=== PATIENT | male | born 1940 | race Caucasian/White ===

== ENCOUNTER 2019-11-17 02:10 | Emergency (ER) | payer OTHER ==
[2019-11-17] MEDS ORDERED: predniSONE 20 MG TAB ONE (03:00)
[2019-11-17] MEDS ORDERED: KETOROLAC 30 MG/ML INJ ONE (03:00)
[2019-11-17] MEDS ORDERED: TRAMADOL HCL 50 MG TAB ONE (03:00)
--- NOTE | 2019-11-17 03:14 | ER ---
Nurse's Notes [facility] Name: Jean-Pierre Betancur Age: 79 yrs Sex: Male : 1940 Arrival Date: 11/17/2019 Time: 02:13 Bed 5 Private MD: Manisha Melendez C Diagnosis: Myalgia Presentation: 11/17 02:33 Presenting complaint: Patient states: he is having a flare up of his polymyalgia bb rheumatica with joint and muscle pain for several months but worsened yesterday and he is unable to sleep tonight. Transition of care: patient was not received from another setting of care. Onset of symptoms was November 16, 2019. Risk Assessment: Do you want to hurt yourself or someone else? Patient reports no desire to harm self or others. Initial Sepsis Screen: Does the patient meet any 2 criteria? No. Patient's initial sepsis screen is negative. Does the patient have a suspected source of infection? No. Patient's initial sepsis screen is negative. Care prior to arrival: None. 02:33 Method Of Arrival: Ambulatory bb 02:33 Acuity: WILSON 4 bb Historical: - Allergies: 02:36 Sulfa (Sulfonamide Antibiotics); bb - Home Meds: 02:36 lisinopril 20 mg Oral tab 1 tab once daily [Active]; bb - PMHx: 02:36 Arthritis; Hypertension; PMR; bb - PSHx: 02:36 prostate; cataract; bb - Immunization history:: Adult Immunizations up to date. - Social history:: Smoking status: Patient/guardian denies using tobacco. - Ebola Screening: : No symptoms or risks identified at this time. Screenin:00 Abuse screen: Denies threats or abuse. Denies injuries from another. Nutritional rr5 screening: No deficits noted. Tuberculosis screening:. Fall Risk None identified. Total M[place]ia Fall Scale indicates No Risk (0-24 pts). Assessment: 02:45 General: Appears in no apparent distress. comfortable, Behavior is calm, cooperative, rr5 appropriate for age. 02:45 Pain: Complains of pain in back Pain radiates to right leg and left leg Pain currently rr5 is 10 out of 10 on a pain scale. Quality of pain is described as aching, Pain began gradually, Is intermittent. Neuro: Level of Consciousness is awake, alert, obeys commands, Oriented to person, place, time, situation, Appropriate for age. Cardiovascular: Capillary refill < 3 seconds Patient's skin is warm and dry. Respiratory: Airway is patent Respiratory effort is even, unlabored, Respiratory pattern is regular, symmetrical. GI: No signs and/or symptoms were reported involving the gastrointestinal system. : No signs and/or symptoms were reported regarding the genitourinary system. EENT: No signs and/or symptoms were reported regarding the EENT system. Derm: Skin is intact, is fragile, is thin, Skin temperature is warm. Musculoskeletal: Capillary refill < 3 seconds, Reports pain in back, right leg and left leg and joints. 03:45 Reassessment: Patient appears in no apparent distress at this time. Patient is alert, rr5 oriented x 3, equal unlabored respirations, skin warm/dry/pink. discharge instruction given and explained without complaints made. able to walk without any complaint. Patient states feeling better. Patient states symptoms have improved. Vital Signs: 02:36 BP 166 / 79; Pulse 97; Resp 16 S; Temp 99.3(O); Pulse Ox 97% on R/A; Weight 74.84 kg bb (R); Height 5 ft. 9 in. (175.26 cm) (R); Pain 10/10; 03:10 BP 143 / 83; Pulse 86; Resp 19; Pulse Ox 99% ; rr5 03:43 BP 144 / 77; Pulse 80; Resp 17; Temp 98.6; Pulse Ox 99% ; Pain 8/10; rr5 02:36 Body Mass Index 24.37 (74.84 kg, 175.26 cm) ED Course: 02:13 Patient arrived in ED. es 02:14 Manisha Melendez MD is Private Physician. es 02:26 Kit Siu MD is Attending Physician. tw4 02:33 Patient has correct armband on for positive identification. Placed in gown. Bed in low rr5 position. Call light in reach. 02:35 Triage completed. bb 02:36 Arm band placed on Patient placed in an exam room, on a stretcher, on pulse oximetry. bb Family accompanied patient. 02:53 Zach Singh RN is Primary Nurse. rr5 03:12 Manisha Melendez MD is Referral Physician. tw4 03:46 No provider procedures requiring assistance completed. Patient did not have IV access rr5 during this emergency room visit. Administered Medications: 03:00 Drug: predniSONE 60 mg Route: PO; rr5 03:47 Follow up: Response: No adverse reaction rr5 03:00 Drug: traMADol 25 mg {Note: rass 0.} Route: PO; rr5 03:46 Follow up: Response: No adverse reaction; Pain is decreased; RASS: Alert and Calm (0) rr5 03:05 Drug: TORadol - Ketorolac 15 mg Route: IM; Site: right deltoid; rr5 03:47 Follow up: Response: No adverse reaction; Pain is decreased rr5 Outcome: 03:13 Discharge ordered by . tw4 03:46 Discharged to home ambulatory, with family. rr5 03:46 Condition: stable 03:46 Discharge instructions given to patient, Instructed on discharge instructions, follow up and referral plans. medication usage, Demonstrated understanding of instructions, follow-up care, medications, Prescriptions given X 2. 03:47 Patient left the ED. rr5 Signatures: Enid Thacker Brenda RN RN Kit Ochoa MD MD tw4 Zach Singh RN RN rr5
--- NOTE | 2019-11-17 03:14 | EDPHYS ---
Physician Documentation [facility] Name: Jean-Pierre Betancur Age: 79 yrs Sex: Male : 1940 Arrival Date: 11/17/2019 Time: 02:13 Bed 5 Private MD: Manisha Melendez C ED Physician Kit Siu HPI: 11/17 02:52 This 79 yrs old Male presents to ER via Ambulatory with complaints of PRM tw4 auto immune disorder. 02:52 GENERALIZED JOINT PAIN. Onset: The symptoms/episode began/occurred today. Severity of tw4 symptoms: At their worst the symptoms were mild in the emergency department the symptoms are unchanged. The patient has not experienced similar symptoms in the past. Historical: - Allergies: 02:36 Sulfa (Sulfonamide Antibiotics); bb - Home Meds: 02:36 lisinopril 20 mg Oral tab 1 tab once daily [Active]; bb - PMHx: 02:36 Arthritis; Hypertension; PMR; bb - PSHx: 02:36 prostate; cataract; bb - Immunization history:: Adult Immunizations up to date. - Social history:: Smoking status: Patient/guardian denies using tobacco. - Ebola Screening: : No symptoms or risks identified at this time. ROS: 02:52 Cardiovascular: Negative for chest pain, palpitations, and edema, Respiratory: Negative tw4 for shortness of breath, cough, wheezing, and pleuritic chest pain, Abdomen/GI: Negative for abdominal pain, nausea, vomiting, diarrhea, and constipation, Back: Negative for injury and pain, MS/Extremity: Negative for injury and deformity, Skin: Negative for injury, rash, and discoloration, Neuro: Negative for headache, weakness, numbness, tingling, and seizure. 02:52 Constitutional: Positive for body aches, chills, Negative for fatigue, fever, malaise, poor PO intake, weight loss. Exam: 02:52 Constitutional: This is a well developed, well nourished patient who is awake, alert, tw4 and in no acute distress. Head/Face: Normocephalic, atraumatic. Chest/axilla: Normal chest wall appearance and motion. Nontender with no deformity. No lesions are appreciated. Cardiovascular: Regular rate and rhythm with a normal S1 and S2. No gallops, murmurs, or rubs. Normal PMI, no JVD. No pulse deficits. Respiratory: Lungs have equal breath sounds bilaterally, clear to auscultation and percussion. No rales, rhonchi or wheezes noted. No increased work of breathing, no retractions or nasal flaring. Abdomen/GI: Soft, non-tender, with normal bowel sounds. No distension or tympany. No guarding or rebound. No evidence of tenderness throughout. Back: No spinal tenderness. No costovertebral tenderness. Full range of motion. MS/ Extremity: Pulses equal, no cyanosis. Neurovascular intact. Full, normal range of motion. Neuro: Awake and alert, GCS 15, oriented to person, place, time, and situation. Cranial nerves II-XII grossly intact. Motor strength 5/5 in all extremities. Sensory grossly intact. Cerebellar exam normal. Normal gait. Vital Signs: 02:36 BP 166 / 79; Pulse 97; Resp 16 S; Temp 99.3(O); Pulse Ox 97% on R/A; Weight 74.84 kg bb (R); Height 5 ft. 9 in. (175.26 cm) (R); Pain 10/10; 03:10 BP 143 / 83; Pulse 86; Resp 19; Pulse Ox 99% ; rr5 03:43 BP 144 / 77; Pulse 80; Resp 17; Temp 98.6; Pulse Ox 99% ; Pain 8/10; rr5 02:36 Body Mass Index 24.37 (74.84 kg, 175.26 cm) MDM: 02:26 Patient medically screened. tw4 05:22 Differential Diagnosis altered mental status, sepsis. Data reviewed: vital signs, tw4 nurses notes. Counseling: I had a detailed discussion with the patient and/or guardian regarding: the historical points, exam findings, and any diagnostic results supporting the discharge/admit diagnosis. Special discussion: I discussed with the patient/guardian in detail that at this point there is no indication for admission to the hospital. It is understood, however, that if the symptoms persist or worsen the patient needs to return immediately for re-evaluation. Administered Medications: 03:00 Drug: predniSONE 60 mg Route: PO; rr5 03:47 Follow up: Response: No adverse reaction rr5 03:00 Drug: traMADol 25 mg {Note: rass 0.} Route: PO; rr5 03:46 Follow up: Response: No adverse reaction; Pain is decreased; RASS: Alert and Calm (0) rr5 03:05 Drug: TORadol - Ketorolac 15 mg Route: IM; Site: right deltoid; rr5 03:47 Follow up: Response: No adverse reaction; Pain is decreased rr5 Disposition: 11/17/19 03:13 Discharged to Home. Impression: Myalgia. - Condition is Stable. - Discharge Instructions: Musculoskeletal Pain, Muscle Pain, Adult. - Prescriptions for Tramadol 50 mg Oral Tablet - take 1 tablet by ORAL route every 8 hours as needed; 12 tablet. Medrol (Kojo) 4 mg Oral Tablets, Dose Pack - take 1 tablet by ORAL route as directed - follow package instructions; 1 packet. - Medication Reconciliation Form, Thank You Letter, Antibiotic Education, Prescription Opioid Use form. - Follow up: Manisha Melendez MD; When: Upon discharge from the Emergency Department; Reason: Recheck today's complaints, Continuance of care. - Problem is new. - Symptoms have improved. Signatures: Meg Clark RN RN Kit Ochoa MD MD tw4 Zach Singh RN RN rr5 Corrections: (The following items were deleted from the chart) 03:47 03:13 11/17/2019 03:13 Discharged to Home. Impression: Myalgia. Condition is Stable. rr5 Forms are Medication Reconciliation Form, Thank You Letter, Antibiotic Education, Prescription Opioid Use. Follow up: Manisha Melendez; When: Upon discharge from the Emergency Department; Reason: Recheck today's complaints, Continuance of care. Problem is new. Symptoms have improved. tw4
[2019-11-17 03:53] VITALS: O2SAT 99
[2019-11-17 03:54] VITALS: BP 144/77; TEMP 98.6
== END 2019-11-17 03:47 | disposition home or self-care (01) ==
LOC: ER 02:10
DX: M79.10 Myalgia, unspecified site (principal); M35.3 Polymyalgia rheumatica; I10 Essential (primary) hypertension; Z88.2 Allergy status to sulfonamides
CPT/HCPCS: 96372; 99283; J7512

== ENCOUNTER 2022-10-05 10:46 | Observation (INO) | payer OTHER ==
--- OUTSIDE RECORDS SUMMARY | 2022-10-05 10:51 | XMS REPORT | Continuity of Care Document ---
:1940 Author Organization [facility] t Address [address] [place] [address] Care Team Providers Name Role Phone Chandan Wilson MD Primary Care Physician ROSAMARIA LEGER Attending Clinician Unavailable Jenny Urrutia MD Attending Clinician Lin Attending Clinician Unavailable Junior Reeder Attending Clinician [phone] Glynn Rodriguez MD Attending Clinician Chandan Wilson MD Attending Clinician JENNY URRUTIA Attending Clinician Unavailable Lin Admitting Clinician Unavailable Payers Payer Name Policy Type Policy Number Effective Date Expiration Date S lee MEDICARE PART A [id number] 2003 AND B 00:00:00 [place]: [id number] 2003 [employer] 00:00:00 [place] [id number] 2018 COMPANIES - PLAN F 00:00:00 (MEDICARE SUPPLEMENT) MEDICARE PART A [id number] 2003 \T\ B 00:00:00 [place] [id number] 2016 INDEMNITY 00:00:00 Problems Condition Condition Condition Status Onset Resolution Last Treating Co mments Source Name Details Category Date Date Treatment Clinician Date Triggering Triggering Problem Active A zalea of digit of Digit 07-23 Orthop e 00:00: dic 00 Sports Medicin e Arthritis Arthritis Problem Active Aza nathan of of 07-23 Orthope bilateral Bilateral 00:00: dic first First 00 Sports carpometac Carpometac Me dicin arpal arpal e joints Joints Pain of Pain of Problem Active Laina left hand Left Hand 07-23 Orth ope 00:00: dic 00 Sports Medicin e Pain in Pain in Problem Active Laina right hand Right Hand 07-23 Or thope 00:00: dic 00 Sports Medicin e CMC CMC Disease Active Last [facility] arthritis arthritis 07-16 Assessmen H ealth 00:00: t & Plan: 00 Formattin g of this note might be different from the original. Reassured patient today and I recommend ed a trial of wrist brace. Also discussed possible CMC joint osteoarth ritic CSI injection to be done if there is worsening pain. But he can also try applying some Pennsaid which have given him samples to today as well I can follow-up with him as needed. Wrist Wrist Disease Active [facility] pain, left pain, left 07-16 He alth 00:00: 00 assisted assisted Disease Active UT (current) (current) 5- use of use of 00:00: systemic systemic 00 steroids steroids Trigger Trigger Problem Active 2019-11 [facility]aina finger of Finger of 1-05 Orth ope left hand Left Hand 00:00: dic 00 Sports Medicin e Degenerati Degenerati Problem Active A zalea on of on of -29 Orthope lumbar Lumbar 00:00: dic interverte Interverte 00 Sp orts bral disc bral Disc Medi sheyla e Low back Low Back Problem Active Azale a pain Pain 4-29 Orthope 00:00: dic 00 Sports Medicin e Encounter Encounter Disease Active [facility] for for 3-16 Health long-term long-term 00:00: (current) (current) 00 use of use of steroids steroids Inflammati Inflammati Problem Active A zalea on of on of 8- Orthope rotator Rotator 00:00: dic cuff Cuff 00 Sports tendon Tendon Medicin e 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 07-13 Or thope of of 00:00: dic shoulder Shoulder 00 Sports region Region Medicin e 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 8- Orthope 00:00: dic 00 Sports Medicin e Pain of Pain of Problem Active Laina left Left 8- Orthope shoulder Shoulder 00:00: dic joint Joint 00 Sports Medicin e 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 4 Or thope thy thy 00:00: dic 00 Sports Medicin e Trochanter Trochanter Problem Active A buddychristinamargot ic ic 4- Orthope bursitis Bursitis 00:00: dic of left of Left 00 Sports hip Hip Medicin e 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 Osteoarthr 2-17 Or thope itis itis 00:00: dic 00 Sports Medicin e Trigger Trigger Problem Active 2017-11 Laina finger of Finger of 1-01 Orth ope right hand Right Hand 00:00: di c 00 Sports Medicin e Degenerati Degenerati Problem Active A zalea ve joint ve Joint 5-11 Orthop e disease of Disease of 00:00: di c hand Hand 00 Sports Medicin e Enthesopat Enthesopat Problem Active A buddychristinamargot hy of hip hy of Hip 3-23 Orth ope region Region 00:00: dic 00 Sports Medicin e 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 2-11 Or thope s s 00:00: dic 00 Sports Medicin e Allergies, Adverse Reactions, Alerts Allergy Allergy Status Severity Reaction(s) Onset Inactive Treating Comm ents Source Name Type Date Date Clinician Sulfa Propensi Active Unknown [facility] Antibiot ty to 4-24 Health ics adverse 00:00: reaction 00 s Erythrom Allergy Active Laina ycin to 2-11 Orthope substanc 00:00: dic e 00 Sports Medicin e SULFA Allergy Active Laina (SULFONA to 2-11 Orthope MIDE substanc 00:00: dic ANTIBIOT e 00 Sports ICS) Medicin e SULFA Drug Active Rash [facility] (SULFONA Class 7-01 ity of MIDE 00:00: [place] ANTIBIOT 00 Medical ICS) Branch Social History Social Habit Start Date Stop Date Quantity Comments Source Exposure to 2022-07-31 2022-08-10 Not sure [facility] SARS-CoV-2 (event) 00:00:00 10:22:00 Tobacco use and 2022-07-06 2022-07-06 Smokeless tobacco [facility] exposure 00:00:00 00:00:00 non-user Tobacco Comment 2022-07-06 2022-07-06 Smoking History [facility] ealt 00:00:00 00:00:00 Packs/day: N. Recorded:02/04/2021 Alcohol intake 2021-03-25 2021-03-25 Ex-drinker [facility] 00:00:00 00:00:00 (finding) Sex [birth year] [facility] 00:00:00 00:00:00 Smoking Status Start Date Stop Date Source Heavy Tobacco Smoker [facility] Never smoked tobacco [facility] Medications Ordered Filled Start Stop Current Ordering Indication Dosage Frequency Signature Comments Components Source Medication Medication Date Date Medication? Clinician (SIG) Name Name methocarbam Yes 500mg Q.5D Take 500 U T ol 9-20 mg by Health (Robaxin) 11:02: mouth 2 500 MG 16 (two) tablet times a day. metoprolol Yes metoprolol U T succinate 9-20 succinate Healt h XL 11:02: ER 25 mg (Toprol-XL) 16 tablet,ext 25 MG 24 hr ended tablet release 24 hr lisinopril Yes lisinopril U T 20 MG 9-20 20 mg Health tablet 11:02: tablet 16 ezetimibe Yes ezetimibe UT (Zetia) 10 9-20 10 mg Health MG tablet 11:02: tablet 16 methocarbam Yes 500mg Q.5D Take 500 U T ol 8-16 mg by Health (Robaxin) 09:52: mouth 2 500 MG 09 (two) tablet times a day. metoprolol Yes metoprolol U T succinate 8-16 succinate Healt h XL 09:52: ER 25 mg (Toprol-XL) 09 tablet,ext 25 MG 24 hr ended tablet release 24 hr lisinopril 0 Yes lisinopril U T 20 MG 8-16 20 mg Health tablet 09:52: tablet 09 ezetimibe 2021-0 Yes ezetimibe UT (Zetia) 10 8-16 10 mg Health MG tablet 09:52: tablet 09 gabapentin Yes [id number] 100mg QD Take 1 UT (Neurontin) 8-16 capsule Healt h 100 MG 00:00: (100 mg capsule 00 total) by mouth 1 (one) time each day. gabapentin 2021- No [id number] 100mg QD Take 1 UT (Neurontin) 07-06 capsule Heal th 100 MG 00:00: 04:59 (100 mg capsule 00 :00 total) by mouth 1 (one) time each day. celecoxib 2021- No [id number] 100mg Q.5D Take 1 UT (CeleBREX) 07-06 [id number] capsule Hea lth 100 MG 00:00: 04:59 (100 mg capsule 00 :00 total) by mouth in the morning and 1 capsule (100 mg total) in the evening. lisinopril Yes lisinopril U T 20 MG 8-26 20 mg Health tablet 21:18: tablet 47 ezetimibe 2020-0 Yes ezetimibe UT (Zetia) 10 8-26 10 mg Health MG tablet 21:18: tablet 47 metoprolol 0 Yes metoprolol U T succinate 8-26 succinate Healt h XL 21:18: ER 25 mg (Toprol-XL) 46 tablet,ext 25 MG 24 hr ended tablet release 24 hr Diclofenac 2020- No [id number] 20mg Q.5D Apply 20 UT Sodium 8-26 09-26 mg Health (Pennsaid) 00:00: 04:59 topically 2 % 00 :00 2 (two) solution times a day. Diclofenac 2020-0 2020- No [id number] 20mg Q.5D Apply 20 UT Sodium 8-26 09-26 mg Health (Pennsaid) 00:00: 04:59 topically 2 % 00 :00 2 (two) solution times a day. methocarbam 0 Yes 500mg Q.5D Take 500 U T ol 4-24 mg by Health (Robaxin) 16:52: mouth 2 500 MG 38 (two) tablet times a day. methocarbam 0 Yes 500mg Q.5D Take 500 U T ol 4-24 mg by Health (Robaxin) 11:52: mouth 2 500 MG 38 (two) tablet times a day. methocarbam 0 Yes 500mg Q.5D Take 500 U T ol 4-24 mg by Health (Robaxin) 11:52: mouth 2 500 MG 38 (two) tablet times a day. predniSONE 2019-0 Yes prednisone U T (Deltasone) 3-16 2.5 mg Health 2.5 MG 00:00: tablet tablet 00 predniSONE 0 Yes prednisone U T (Deltasone) 3-16 2.5 mg Health 2.5 MG 00:00: tablet tablet 00 predniSONE 2019-0 Yes prednisone U T (Deltasone) 3-16 2.5 mg Health 2.5 MG 00:00: tablet tablet 00 ezetimibe ezetimibe No ezetimibe L[facility]a 10 mg 10 mg 10 mg Orthope tablet tablet tablet dic Sports Medicin e lisinopril lisinopril No lisinopril Laina 20 mg 20 mg 20 mg Orthope tablet tablet tablet dic Sports Medicin e metoprolol metoprolol No metoprolol Laina succinate succinate succinate Orthope ER 25 mg ER 25 mg ER 25 mg dic tablet,exte tablet,exte tablet,ext Sports nded nded ended Medicin release 24 release 24 release 24 e hr hr hr prednisone prednisone No prednisone Laina 10 mg 10 mg 10 mg Orthope tablet 1 by tablet 1 by tablet 1 dic mouth three mouth three by mouth Sports times a day times a day three Medicin times a e day Voltaren Voltaren No Voltaren Aza nathan Arthritis Arthritis Arthritis Orthope Pain 1 % Pain 1 % Pain 1 % dic topical gel topical gel topical Sports Apply 2 Apply 2 gel Apply Medi sheyla gram to gram to 2 gram to e affected affected affected area three area three area three times a day times a day times a as needed as needed day as for pain for pain needed for pain Immunizations Ordered Immunization Filled Immunization Date Status Commen ts Source Name Name COVID-19 Pfizer & 2022-05-06 Completed [facility] Vaccination (NEVES 00:00:00 CAP-DO NOT DILUTE) COVID-19 Pfizer & 2022-05-06 Completed [facility] Vaccination (NEVES 00:00:00 CAP-DO NOT DILUTE) Vital Signs Vital Name Observation Time Observation Value Comments Source Systolic blood 2022-08-10 16:01:00 99 mm[Hg] [facility] pressure Diastolic blood 2022-08-10 16:01:00 63 mm[Hg] [facility] pressure Heart rate 2022-08-10 16:01:00 70 /min [facility] Body height 2022-08-10 16:01:00 172.7 cm [facility] Body weight 2022-08-10 16:01:00 70.308 kg [facility] BMI 2022-08-10 16:01:00 23.57 kg/m2 [facility] Height 2022-07-23 00:00:00 69 [in_i] [facility] BMI (Body Mass 2022-07-23 00:00:00 22.9 kg/m2 [facility] Orthopedic Index) Sports Medicine Body Weight 2022-07-23 00:00:00 155 [lb_av] [facility] Systolic blood 2022-07-06 14:49:00 121 mm[Hg] [facility] pressure Diastolic blood 2022-07-06 14:49:00 63 mm[Hg] [facility] pressure Heart rate 2022-07-06 14:49:00 85 /min [facility] Body height 2022-07-06 14:49:00 175.3 cm [facility] Body weight 2022-07-06 14:49:00 68.04 kg [facility] BMI 2022-07-06 14:49:00 22.15 kg/m2 [facility] Procedures Procedure Date / Time Performing Clinician Source Performed XR, hand, 2 view 2022-07-23 00:00:00 [facility] [place] BONE DENSITY DXA DUAL 2021-04-21 14:31:05 Chandan [facility] EN[facility]GY [id number] [place] BONE DENSITY DXA DUAL 2021-04-21 14:31:05 Chandan [facility] EN[facility] [id number] Prostatectomy [facility] her[facility] Encounters Start End Encounter Admission Attending Care Care Encounter Source Date/Time Date/Time Type Type Clinicians Facility Department ID 2021-07-15 Outpatient [facility] [id number] [place] 15:20:07 Health 2021-03-28 Outpatient [place], [facility] [id number] [place] 04:03:14 [facility] 2022-08-10 2022-08-10 Office ANI Urrutia [facility] [id number] [place] 11:00:00 11:21:21 Visit [facility] [id number] Neo sandrine ISABELLE 2 [id number] 2022-07-23 2022-07-23 Outpatient FOG_Burke_R AOSM AOSM [id number] Laina 00:00:00 00:00:00 Marques [id number] Ortho pe dic Sports Medicin e 2022-07-23 2022-07-23 Outpatient MIRIAM Reeder [id number] 00:00:00 00:00:00 Junior Lamar [id number] 2022-07-23 2022-07-23 Junior PINEDA [place] - Ortho Laina 00:00:00 00:00:00 MD Varinder: Iqra Adams [address] [address] FOG_Ofc dic [place], [place] [facility] [address] [facility]in [place] [facility] [address] , Ph. [id number] 2022-07-19 2022-07-19 Outpatient FOG_Burke_R AOSM AOSM [id number] Laina 00:00:00 00:00:00 Marques [id number] Ortho pe dic Sports Medicin e 2022-07-14 2022-07-14 Outpatient FOG_Burke_R AOSM AOSM [id number] L[facility]a 00:00:00 00:00:00 Marques [id number] Ortho pe dic Sports Medicin e 2022-07-13 2022-07-13 Outpatient FOG_Burke_R AOSM AOSM [id number] [facility]a 00:00:00 00:00:00 Marques [id number] Ortho pe dic Sports Medicin e 2022-07-08 2022-07-08 Outpatient FOG_Burke_R AOSM AOSM [id number] [facility]a 00:00:00 00:00:00 Marques [id number] Ortho pe dic Sports Medicin e 2022-07-06 2022-07-06 Office ANI Urrutia [facility] [id number] [place] 11:00:00 11:00:00 Visit Jenny [facility] [id number] He alth [place] [address] [id number] 2021-07-16 2021-07-16 Office Shirlene [facility] [id number] [place] 15:55:40 16:10:40 Visit MARY Gallardo [id number] H ealth [facility] [id number] [address] [id number] 2021-03-25 2021-03-25 EXT [facility] OP Wilson, EXT MSRDP [id number] [place] 00:00:00 00:00:00 Chandan LOCATION [id number] H ealth [id number] 2021-03-25 2021-03-25 EXT [facility] OP Wilson, EXT M[facility]DP [id number] [place] 00:00:00 00:00:00 Chandan LOCATION [id number] H ealth [id number] 2021-02-06 2021-02-06 Outpatient [facility] [id number] [facility] 12:30:00 12:30:00 [facility] 2021-01-16 2021-01-16 Outpatient [facility] [id number] Univers 11:20:00 11:20:00 [facility] 2020-12-24 2020-12-24 Outpatient NAKIA, JORGEBL [facility] [id number] [facility] 10:00:00 14:13:00 JENNY Results This patient has no known results.
[2022-10-05] MEDS ORDERED: dexAMETHasone 10 MG/ML VIAL ONE (11:36)
[2022-10-05] MEDS ORDERED: FAMOTIDINE 20 MG/2 ML VIAL IV ONE (11:37)
[2022-10-05] MEDS ORDERED: GLUCAGON 1 MG/VIAL ONE (11:37)
[2022-10-05 12:03] LABS: Absolute Lymphocytes (CBC) 1.2 K/uL (0.7-4.9); Hematocrit 42.6 % (39.6-49.0); Lymphocytes % 11.2 % (15.3-44.8); MCV 95.7 fL (80-100); MPV 7.7 fL (7.6-11.3); RBC Red Blood Cell Count 4.45 M/uL (4.33-5.43)
[2022-10-05 12:16] LABS: Potassium 3.9 mmol/L (3.5-5.1)
--- NOTE | 2022-10-05 13:34 | EDPHYS ---
Physician Documentation [facility] Name: Jean-Pierre Betancur Age: 82 yrs Sex: Male : 1940 Arrival Date: 10/05/2022 Time: 10:50 Bed Treatment Private MD: ED Physician Jamar Grimaldo HPI: 10/05 11:34 This 82 yrs old Male presents to ER via Ambulatory with complaints of Difficulty rn Swallowing. 11:34 The patient presents with a foreign body sensation in the throat. The patient describes rn throat pain as raw. Onset: The symptoms/episode began/occurred this morning. Severity of symptoms: At their worst the symptoms were moderate, in the emergency department the symptoms are unchanged. Modifying factors: The symptoms are alleviated by nothing, the symptoms are aggravated by fluids, swallowing. Associated signs and symptoms: Pertinent positives: dysphagia, Pertinent negatives chest pain, fever, shortness of breath. The patient has experienced similar episodes in the past. The patient has not recently seen a physician. Pt reports has been doing fine last few days, + intermittent problems with swallowing and things getting stuck but usually pass. This AM took his normal pills and feels like got stuck in lower esophagus. Unable to drink liquids. Had not eaten today yet. . Historical: - Allergies: 17:08 Sulfa (Sulfonamide Antibiotics); ld1 - Home Meds: 17:08 lisinopril 20 mg Oral tab 1 tab once daily [Active]; ld1 - PMHx: 17:08 Arthritis; Hypertension; PMR; ld1 - Immunization history:: Adult Immunizations up to date, Client reports receiving the 2nd dose of the Covid vaccine. - Family history:: not pertinent. - Social history:: Smoking status: Patient denies any tobacco usage or history of. - Hospitalizations: : No recent hospitalization is reported. ROS: 11:34 Constitutional: Negative for fever, chills, and weight loss, Eyes: Negative for injury, rn pain, redness, and discharge, ENT: Negative for injury, pain, and discharge, Neck: Negative for injury, pain, and swelling, Cardiovascular: Negative for chest pain, palpitations, and edema, Respiratory: Negative for shortness of breath, cough, wheezing, and pleuritic chest pain, Abdomen/GI: Negative for abdominal pain, diarrhea, and constipation, + foreign body in esophagus Back: Negative for injury and pain, MS/Extremity: Negative for injury and deformity, Skin: Negative for injury, rash, and discoloration, Neuro: Negative for headache, weakness, numbness, tingling, and seizure. Exam: 11:34 Constitutional: This is a well developed, well nourished patient who is awake, alert, rn holding emesis bag and spitting into it Head/Face: Normocephalic, atraumatic. ENT: no stridor Cardiovascular: Regular rate and rhythm. No pulse deficits. Respiratory: No increased work of breathing, no retractions or nasal flaring. Abdomen/GI: Soft, non-tender Skin: Warm, dry MS/ Extremity: Pulses equal, no cyanosis. Neuro: Awake and alert, GCS 15 Vital Signs: 11:33 BP 138 / 78; Pulse 93; Resp 16; Pulse Ox 98% on R/A; iw 13:40 BP 131 / 77; Pulse 89; Resp 16; Pulse Ox 99% on R/A; ld1 MDM: 10:51 Patient medically screened. rn 13:32 Differential diagnosis: esophagitis, pill esophagitis. Data reviewed: vital signs, rn nurses notes, and as a result, I will discharge patient. Counseling: I had a detailed discussion with the patient and/or guardian regarding: the historical points, exam findings, and any diagnostic results supporting the discharge/admit diagnosis, lab results, the need for further work-up and treatment in the hospital. Response to treatment: There is no appreciated change of the patient's symptoms at this time, and as a result, I will admit patient. Admission orders: after a detailed discussion of the patient's condition and case, the admit orders are written by me. ED course: Pt given steroids and antacids, given PO challenge and unable to keep fluids down, will admit to Dr. Melendez for esophagitis and not tolerating PO. Has seen Dr. Cantu before for esophagitis. . 15:13 ED course: Consulted with Dr. Cantu, will see patient in hospital tomorrow, will admit rn to Dr. Melendez. 10/05 11:31 Order name: CBC with Diff; Complete Time: 12:21 rn 10/05 11:31 Order name: Basic Metabolic Panel; Complete Time: 12:21 rn 10/05 14:32 Order name: SARS-COV-2 Antigen Rapid; Complete Time: 15:01 EDNC 10/05 11:31 Order name: IV Start; Complete Time: 11:56 rn Administered Medications: 11:56 Drug: GlucaGen (glucagon) 1 mg Route: IVP; Site: left antecubital; ap3 11:56 Drug: Pepcid (famotidine) 20 mg Route: IVP; Site: left antecubital; ap3 11:56 Drug: Decadron - Dexamethasone 10 mg Route: IVP; Site: left antecubital; ap3 15:42 Drug: morphine 2 mg Route: IVP; Infused Over: 4 mins; Site: left antecubital; ld1 Disposition Summary: 10/05/22 13:34 Hospitalization Ordered Hospitalization Status: Observation rn Provider: Manisha Melendez rn Location: Telemetry/MedSurg (observation) rn Condition: Stable rn Problem: an acute exacerbation rn Symptoms: are unchanged rn Bed/Room Type: Standard rn Room Assignment: 411(10/05/22 16:26) bd Diagnosis - Esophagitis, unspecified - Pill related rn Forms: - Medication Reconciliation Form rn - SBAR form rn Signatures: Dispatcher [employer] EDMS Wendy Jesus Roman, MD MD rn Prokisch, Amanda, RN RN ap3 Sandra Berger RN RN ld1 Corrections: (The following items were deleted from the chart) 16:26 13:34 rn bd
--- NOTE | 2022-10-05 13:34 | ER ---
Nurse's Notes [facility] Name: Jean-Pierre Betancur Age: 82 yrs Sex: Male : 1940 Arrival Date: 10/05/2022 Time: 10:50 Bed Treatment Private MD: Diagnosis: Esophagitis, unspecified-Pill related Presentation: 10/05 11:24 Chief complaint: Patient states: difficulty swallowing after taking his meds this iw morning ,feels like it got stuck in his esophagus. Coronavirus screen: At this time, the client does not indicate any symptoms associated with coronavirus-19. Ebola Screen: Patient negative for fever greater than or equal to 101.5 degrees Fahrenheit, and additional compatible Ebola Virus Disease symptoms Patient denies exposure to infectious person. Patient denies travel to an Ebola-affected area in the 21 days before illness onset. No symptoms or risks identified at this time. Initial Sepsis Screen: Does the patient meet any 2 criteria? No. Patient's initial sepsis screen is negative. Does the patient have a suspected source of infection? No. Patient's initial sepsis screen is negative. Risk Assessment: Do you want to hurt yourself or someone else? Patient reports no desire to harm self or others. Onset of symptoms was October 05, 2022. 11:24 Method Of Arrival: Ambulatory iw 11:24 Acuity: WILSON 3 iw Historical: - Allergies: 17:08 Sulfa (Sulfonamide Antibiotics); ld1 - Home Meds: 17:08 lisinopril 20 mg Oral tab 1 tab once daily [Active]; ld1 - PMHx: 17:08 Arthritis; Hypertension; PMR; ld1 - Immunization history:: Adult Immunizations up to date, Client reports receiving the 2nd dose of the Covid vaccine. - Family history:: not pertinent. - Social history:: Smoking status: Patient denies any tobacco usage or history of. - Hospitalizations: : No recent hospitalization is reported. Screenin:56 Abuse screen: Denies threats or abuse. Nutritional screening: No deficits noted. ap3 Tuberculosis screening: No symptoms or risk factors identified. 17:08 Fall Risk None identified. ld1 Assessment: 11:57 General: Appears uncomfortable, Behavior is calm, cooperative. Pain: Complains of pain ap3 in mid-sternal area. Neuro: Level of Consciousness is awake, alert, obeys commands, Oriented to person, place, time, situation, Gait is steady, Speech is normal. Cardiovascular: Patient's skin is warm and dry. Respiratory: Airway is patent Respiratory effort is even, unlabored, Respiratory pattern is regular, symmetrical. EENT: Parent/caregiver reports the patient having difficulty swallowing. Vital Signs: 11:33 BP 138 / 78; Pulse 93; Resp 16; Pulse Ox 98% on R/A; iw 13:40 BP 131 / 77; Pulse 89; Resp 16; Pulse Ox 99% on R/A; ld1 ED Course: 10:50 Patient arrived in ED. rg4 10:51 Jamar Grimaldo MD is Attending Physician. rn 11:26 Triage completed. iw 11:26 Arm band placed on. iw 11:31 Niyah Max RN is Primary Nurse. ap3 11:56 Inserted saline lock: 20 gauge in left antecubital area, using aseptic technique. Blood ap3 collected. 11:58 Patient has correct armband on for positive identification. Call light in reach. Adult ap3 w/ patient. Pulse ox on. NIBP on. Door closed. Noise minimized. 13:34 Manisha Melendez MD is Hospitalizing Provider. rn 17:07 No provider procedures requiring assistance completed. Patient admitted, IV remains in ld1 place. Administered Medications: 11:56 Drug: GlucaGen (glucagon) 1 mg Route: IVP; Site: left antecubital; ap3 11:56 Drug: Pepcid (famotidine) 20 mg Route: IVP; Site: left antecubital; ap3 11:56 Drug: Decadron - Dexamethasone 10 mg Route: IVP; Site: left antecubital; ap3 15:42 Drug: morphine 2 mg Route: IVP; Infused Over: 4 mins; Site: left antecubital; ld1 Medication: 11:58 VIS not applicable for this client. ap3 Outcome: 13:34 Decision to Hospitalize by Provider. rn 17:07 Admitted to Med/surg accompanied by tech, via wheelchair, room 411, with chart, Report ld1 called to NOELLE Caldwell 17:07 Condition: stable 17:07 Instructed on the need for admit. 17:08 Patient left the ED. ld1 Signatures: Petrona Rollins RN RN Jamar Grimaldo MD MD rn Garcia, Rubi rg4 Niyah Max, RN RN ap3 Sandra Berger, RN RN ld1
[2022-10-05 14:32] LABS: SARS-CoV-2 Antigen Rapid Res Negative (Negative)
[2022-10-05] MEDS ORDERED: ONDANSETRON 4 MG/2 ML VIAL IV PRN (15:27)
[2022-10-05] MEDS ORDERED: SODIUM CHLORIDE 0.9% 10ML INJ IV PRN (15:27)
[2022-10-05] MEDS ORDERED: MORPHINE 2 MG/ML SYR ONE (15:38)
[2022-10-05 18:00] VITALS: BMI 26.4
[2022-10-05] MEDS: D5.45NS W/KCL 20MEQ 1,000 ML IV SCH (18:28)
[2022-10-05] MEDS ORDERED: METOPROLOL TARTRATE 5 MG/5 ML INJ IV PRN (19:10)
[2022-10-05] MEDS ORDERED: INFLUENZA VACCINE (for 6+ mo) 0.5 ML DOSE IMVAC ONE (20:00)
--- NOTE | 2022-10-06 01:54 | HP ---
Date of Admission: 10/05/2022 Chief Complaint: Trouble swallowing and pain. History Of Present Illness: This is an 82-year-old pleasant male patient who reports that in the pas t he had some trouble swallowing and had an endoscopy procedure done with some intervention done by Abelardo Cantu a few years ago. After that, he stopped having this difficulty swallowing. Lately, he sta rted having some trouble swallowing, especially when he was eating dry chicken or something like that . This morning he took his blood pressure medicine and some antihistamine for allergies and both of these medications, when he took it with some water, he felt like those tablets got stuck in his lower esophagus area and he was not able to get it down even after he tried to drink some water and he sta rted regurgitating foamy liquids. Subsequently, he started to have lot of pain in his lower esophagu s. Later on he did try to drink some Sprite and just after 1 or 2 sips, it all came back and he came into emergency room with this difficulty and painful swallowing and after he was evaluated, he was a dmitted to the hospital. Denies any fever, chills, or shortness of breath. No hematemesis. Allergies: SULFA CAUSING RASH AND ERYTHROMYCIN CAUSING RASH. Medications: Aspirin 81 mg daily, ezetimibe 10 mg daily, lisinopril 20 mg daily, metoprolol succinat e 25 mg 2 times a day, and methocarbamol 500 mg 2 times a day as needed. Review of Systems: GI: As mentioned above. All other systems reviewed and negative. Past Medical History: Significant for hypertension, mixed hyperlipidemia, premature atrial contracti on, premature ventricular contractions, gastroesophageal reflux disease, diverticulosis, prostate can cer, testicular hypofunction, and polymyalgia rheumatica. Past Surgical History: Prostatectomy for prostate cancer. Family History: Father , details unknown. Mother and had Alzheimer disease. Daughter with kidney disease and diabetes. Social History: Prior history of smoking, not at present time. Use of alcohol: Negative. Physical Examination: Vital Signs: Temperature 97.6, pulse 84, respiratory rate 16, blood pressure 166/74, oxygen saturati on 96% on room air. Height 5 feet 9 inches, weight 179 pounds. General: Awake, alert, oriented, not in distress. HEENT: Head atraumatic, normocephalic. Conjunctivae nonerythematous. Sclerae white. Mouth, no thr ush or edema noted. Ears/Nose, no mass, lesion, discharge noted. Neck: Supple. No JVD, lymph nodes, bruit, thyromegaly noted. Lungs: Bilateral good equal air entry. Clear to auscultation. No rhonchi. No rales. Heart: Normal heart sounds, no murmur or gallop. Abdomen: Soft, bowel sounds normal. No guarding, rigidity, tenderness, mass, hepatosplenomegaly, dis tention, or bruit noted. Extremities: No leg edema. No calf tenderness. Skin: No rash, ulcer, cellulitis. Lymphatics: No lymph node enlargement in neck, supraclavicular, infraclavicular region. Neuro: No focal neurological deficit. Chest: Unremarkable. External Genitalia: Deferred. Rectal: Deferred. Laboratory Data: White count 10.9, hemoglobin 14.5, platelets 187. Sodium 145, potassium 3.9, chlor demetri 113, bicarb 29, BUN 24, creatinine 0.87, glucose 98. COVID-19 test negative. Impression: 1.Dysphagia, lower esophageal. 2.Odynophagia. 3.Hypertension. 4.Mixed hyperlipidemia. 5.Gastroesophageal reflux disease. 6.Diverticulosis. 7.Polymyalgia rheumatica. 8.Prostate cancer. Plan: We will admit the patient to hospital for further evaluation and management of this problem. The patient is appropriate for observation. He received IV Protonix and we will continue that. Cont inue IV fluid. Keep him n.p.o. For blood pressure control, I have ordered IV Lopressor 5 mg every 6 hours as needed for systolic blood pressure higher than 160. We will not give any medications at th is point. Dr. Cantu, patient's electrical sign wirer was consulted and he will plan to do EGD tomorrow . I have communicated with the patient informing him that in the future when he starts to have any t rouble swallowing, he needs to immediately follow up with his electrical sign wirer so he can avoid thes e kind of complications. I will see him tomorrow morning for followup. OLIVIA/MODL Voice ID: [id number]
[2022-10-06] MEDS: D5.45NS W/KCL 20MEQ 1,000 ML IV SCH ×2 (02:00→04:48)
[2022-10-06 03:48] LABS: Absolute Lymphocytes (CBC) 0.8 K/uL (0.7-4.9); Hematocrit 39.1 % (39.6-49.0); MCV 95.6 fL (80-100); MPV 7.9 fL (7.6-11.3); RBC Red Blood Cell Count 4.09 M/uL (4.33-5.43)
[2022-10-06 03:54] LABS: Potassium 4.6 mmol/L (3.5-5.1)
[2022-10-06] MEDS ORDERED: Ringers Lactate 1,000 ML IV ONE (08:36)
[2022-10-06] MEDS ORDERED: PANTOPRAZOLE 40 MG INJ IVP SCH (09:00)
[2022-10-06] MEDS ORDERED: propofoL 200 MG/20 ML VIAL IV ONE (10:01)
[2022-10-06] MEDS ORDERED: LIDOCAINE 1% MPF 5 ML VIAL ONE (10:02)
[2022-10-06 10:55] VITALS: O2SAT 99
[2022-10-06 13:02] VITALS: BP 151/64; TEMP 97.7
--- NOTE | 2022-10-07 02:06 | DS ---
Date of Discharge: 10/06/2022 Disposition: Discharged to go home. Physical Examination: HEENT: Unremarkable. Lungs: Clear to auscultation. Heart: Sounds normal. Abdomen: Soft. Bowel sounds normal. No guarding, rigidity, tenderness, or distention. Extremities: No leg edema. Discharge Diagnoses: 1.Esophageal stricture. 2.Dysphagia secondary to above. 3.Odynophagia. 4.Hypertension. 5.Mixed hyperlipidemia. 6.Gastroesophageal reflux disease. 7.Diverticulosis. 8.Polymyalgia rheumatica. 9.Prostate cancer. Discharge Medications And Instructions: 1.Continue all prior home medication except do not take any aspirin for 1 week and then you may rest art your aspirin 81 mg 3 times a week, take with food. 2.Do not take any Aleve or Motrin type of medications. 3.Start omeprazole 40 mg, take 1 capsule by mouth daily in morning 30 minutes before breakfast. 4.Follow up at my office next week and follow up with Dr. Cantu also next week. Laboratory Data: Yesterday white count was 10.9, hemoglobin 14.5, and platelets 187. Today white co unt is 6.4, hemoglobin 13.2, and platelets 172. Yesterday sodium was 145, potassium 3.9, chloride 11 3, bicarb 29, BUN 24, creatinine 0.87, and glucose 98. Today sodium is 150, potassium 4.6, chloride 118, bicarb 29, BUN 24, creatinine 0.79, and glucose 161. Hospital Course: This is an 82-year-old very pleasant male patient with history of some difficulty s wallowing who came yesterday to the emergency room. After he swallowed morning dose of his medicatio n, he felt like his medication got stuck in the lower part of the esophagus and he started to have a lot of pain. After he came into emergency room, he was evaluated and admitted to the hospital. GI c onsultation was obtained from his copier operator, Dr. Cantu and today Dr. Cantu did an EGD and after EGD was done, he released him to go home from copier operator point of view. Medically, the patient was stable for discharge. I will see him for followup at office next week. OLIVIA/MODL Voice ID: [id number] Report ID: [id number]
--- NOTE | 2022-10-11 22:57 | CON ---
Date of Consultation: 10/06/2022 Reason For Consultation: Dysphagia, odynophagia to solids, liquids, and saliva, and taking pills. History Of Present Illness: The patient is an 82-year-old white male, who presented to the hospital with difficulty swallowing. The patient states that he was taking pills and he began having problems swallowing, after a pill that he was taking became lodged in his esophagus. The patient states that he subsequently tried to swallow liquids and have regurgitation with that also regurgitation with ev en his saliva and came to the emergency room for further evaluation. Of note, in the past, he had tr ouble swallowing and had an EGD at that time with esophageal dilatation. By his recollection today, he has been having some problems eating dry chicken recently. He believes that today he was taking o ne of his antihistamine allergy medicines along with his other blood pressure medicines and the table t got stuck in his lower esophageal area and he has been regurgitating all the contents whether they be solids, liquids, or saliva since that time. He also started having pain in his esophagus as well. He drinks some Sprite by chart review and wanted 2 sips and it all came back up and came to the [facility] room for further evaluation and care. He denies any hematemesis, coffee-grounds emesis, fever s, chills, night sweats, shortness of breath, chest pain, I guess he does have some odynophagia as bushra s stated, hurts a little bit when he tries to swallow. Allergies: SULFA, CAUSES RASH. ERYTHROMYCIN, CAUSES RASH. Medications: Include aspirin, Ezetimibe, lisinopril, metoprolol, methocarbamol. Past Medical History: Significant for hypertension, hyperlipidemia, premature atrial contractions, p remature ventricular contractions, gastroesophageal reflux disease, diverticulosis, prostate cancer, testicular hypofunction, and polymyalgia rheumatica. Past Surgical History: Prostatectomy for prostate cancer. Family History: Father , but reason unknown. Mother from Alzheimer disease, and al so had arthritis. Daughter with kidney disease and diabetes. Social History: , 2 children. No tobacco. No alcohol. Review of Systems: The patient has dysphagia, odynophagia, after swallowing antihistamine allergic pill along with his o ther blood pressure medicines, and I guess cholesterol medicines as well. Since that time, he has pimentel d regurgitation of all solids, liquids, and saliva. Seem to have possible pill-induced esophagitis. Physical Examination: Vital Signs: Patient is 5 foot 9, 179 pounds, BMI 26.4 kg/m2. Temperature of 97.8 degrees Fahrenhei t, pulse 81, respiratory rate 14, blood pressure 140/60, O2 saturation 95% on room air. General: He is well-nourished, well-developed male, seen in bed, in mild distress, unable to swallow solids, liquids, or saliva. HEENT: Normocephalic, atraumatic. Anicteric. Pupils equal, round, and reactive to light. Extraocu lar movements are intact. Oropharynx clear. Neck: Supple. No masses. Respirations: Clear to auscultation bilaterally. Cardiac: Regular rate and rhythm. Gastrointestinal: Positive bowel sounds. Soft, nontender, nondistended. No hepatosplenomegaly. Extremities: No clubbing, cyanosis, or edema. 2+ pulses. Neuro: Alert and oriented x3. Grossly nonfocal. 5/5 motor strength to light touch. Laboratory Data: The patient has a white count of 6.4, down from 10.9 yesterday, hemoglobin of 13.2, hematocrit of 39.1, MCV of 96, platelet count of 172, polys of 82%, lymphocytes 12%, monocytes 6%. The patient has a sodium 150s, up from 145 yesterday; potassium 4.6; chloride 118; bicarb 29; BUN 24; creatinine of 0.8; glucose 161; calcium 9.0. COVID-19 testing was negative. Impression: 1.Pill-induced esophagitis with subsequent dysphagia, odynophagia. Atypical chest pain after [employer] wing allergy medicines yesterday and other blood pressure and lipid medication. He has dysphagia to solids, liquids, and saliva at this time. He had a prior episode of dysphagia in 2018 and required t herapy at that time. Advise recollection today. 2.History of hypertension, arthritis, hyperlipidemia, PVCs. 3.Gastroesophageal reflux disease. 4.Diverticulosis. 5.Prostate cancer, status post prostatectomy. 6.Testicular hypofunction. 7.Polymyalgia rheumatica. Recommendation: 1.Continue IV fluids with actual increase as he has a little bit of hyponatremia, unable to swallow liquids. 2.Proceed with EGD. 3.Keep patient n.p.o. 4.PPI therapy. ADA/DAYNA Voice ID: [id number] Report ID: [id number]
== END 2022-10-06 14:54 | disposition home or self-care (01) ==
LOC: ER 10:46 → ERHOLD 13:35 → 4TH 16:52
PROVIDERS: ADMIT Internal Medicine; ATTEND Internal Medicine
PROC: 0DB68ZX Excision of Stomach, Via Natural or Artificial Opening Endoscopic, Diagnostic (ICD-10-PCS; principal; 2022-10-06 10:00)
DX: K22.2 Esophageal obstruction (principal); R13.14 Dysphagia, pharyngoesophageal phase; I10 Essential (primary) hypertension; M35.3 Polymyalgia rheumatica; E78.2 Mixed hyperlipidemia; K21.9 Gastro-esophageal reflux disease without esophagitis; K57.90 Diverticulosis of intestine, part unspecified, without perforation or abscess without bleeding; F17.200 Nicotine dependence, unspecified, uncomplicated; R07.89 Other chest pain; E29.1 Testicular hypofunction; K29.50 Unspecified chronic gastritis without bleeding; Z88.2 Allergy status to sulfonamides; Z85.46 Personal history of malignant neoplasm of prostate; Z90.79 Acquired absence of other genital organ(s); Z20.822 Contact with and (suspected) exposure to COVID-19; Z88.3 Allergy status to other anti-infective agents
CPT/HCPCS: 85025 ×2; 80048 ×2; 36415 ×2; 88312; 88305; 96375; 96374; 99285; 87811; 43239; J2704; J1610; J2001; J1100; J2270; G0378 ×4; J7120; J2405; C9113

== ENCOUNTER 2023-10-08 07:54 | Emergency (ER) | payer OTHER ==
--- OUTSIDE RECORDS SUMMARY | 2023-10-08 07:57 | XMS REPORT | Continuity of Care Document ---
:1940 Author Organization [facility] t Address [address] [facility]. [address] [place] [address] Care Team Providers Name Role Phone Ángel Melendez Primary Care Physician ROSAMARIA LEGER Attending Clinician Unavailable Nurse, Andrea Zhang Attending Clinician Unavailable Hattie Brice MD Attending Clinician HATTIE BRICE Attending Clinician Unavailable Jenny Urrutia MD Attending Clinician Lin Attending Clinician Unavailable Junior Reeder Attending Clinician [phone] Glynn Rodriguez MD Attending Clinician Chandan Wilson MD Attending Clinician JNENY URRUTIA Attending Clinician Unavailable Lin Admitting Clinician Unavailable Payers Payer Name Policy Type Policy Number Effective Date Expiration Date S lee MEDICARE PART A [id number] 2003 AND B 00:00:00 [place] B-[place]: [id number] 2003 [employer] 00:00:00 STATE [facility] INS [id number] 2018 COMPANIES - PLAN F 00:00:00 (MEDICARE SUPPLEMENT) Problems Condition Condition Condition Status Onset Resolution Last Treating Co mments Source Name Details Category Date Date Treatment Clinician Date Triggering Triggering Problem Active A zalea of digit of Digit 902 Orthop e 00:00: dic 00 Sports Medicin [...] Disease Active [place] pain, left pain, 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 UT (current) (current) 5- use of use of 00:00: systemic systemic 00 steroids steroids Trigger Trigger Problem Active 2019-11 Laina finger of Finger of 1-05 Orth ope left hand Left Hand 00:00: dic 00 Sports Medicin e Degenerati Degenerati Problem Active A zalea on of on of 4-29 Orthope lumbar Lumbar 00:00: dic interverte Interverte 00 Sp orts bral disc bral Disc Medi sheyla e Low back Low Back Problem Active Azale a pain Pain 4-29 Orthope 00:00: dic 00 Sports Medicin e Encounter Encounter Disease Active UT for for 3-16 Health long-term long-term 00:00: (current) (current) 00 use of use of steroids steroids Inflammati Inflammati Problem Active Margot molina on of on of 07-13 Orthope rotator Rotator 00:00: dic cuff Cuff 00 Sports tendon Tendon Medicin e 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 07-13 Or thope of of 00:00: dic shoulder Shoulder 00 Sports region Region Medicin e 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 8 Orthope 00:00: dic 00 Sports Medicin e Pain of Pain of Problem Active Laina left Left 8 Orthope shoulder Shoulder 00:00: dic joint Joint 00 Sports Medicin e 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 4- Or thope thy thy 00:00: dic 00 Sports Medicin e Trochanter Trochanter Problem Active A buddychristinamargot ic ic 4-23 Orthope bursitis Bursitis 00:00: dic of left of Left 00 Sports hip Hip Medicin e 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 Osteoarthr 2-17 Or thope itis itis 00:00: dic 00 Sports Medicin e Trigger Trigger Problem Active 2017-11 Laina finger of Finger of 1-01 Orth ope right hand Right Hand 00:00: di c 00 Sports Medicin e Degenerati Degenerati Problem Active A tracy ve joint ve Joint 5-11 Orthop e disease of Disease of 00:00: di c hand Hand 00 Sports Medicin e Enthesopat Enthesopat Problem Active A tracy hy of hip hy of Hip 3-23 Orth ope region Region 00:00: dic 00 Sports Medicin e Bilateral Bilateral Disease Active 2015-11 Uni vers hand pain hand pain 2-23 ity of 00:00: [place] 00 Medical Branch 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 2-11 Or thope s s 00:00: dic 00 Sports Medicin e Allergies, Adverse Reactions, Alerts Allergy Allergy Status Severity Reaction(s) Onset Inactive Treating Comm ents Source Name Type Date Date Clinician Sulfa Propensi Active Unknown [place] Antibiot ty to 24 Health ics adverse 00:00: reaction 00 s Erythrom Allergy Active Laina ycin to 2-11 Orthope substanc 00:00: dic e 00 Sports Medicin e SULFA Allergy Active Laina (SULFONA to 2-11 Orthope MIDE substanc 00:00: dic ANTIBIOT e 00 Sports ICS) Medicin e SULFA Drug Active Rash Univers (SULFONA Class 7- ity of MIDE 00:00: [place] ANTIBIOT 00 Medical ICS) Branch Sulfa Propensi Active Rash Univers (Sulfona ty to 7- ity of mide adverse 00:00: [place] Antibiot reaction 00 Medica l ics) s Branch Social History Social Habit Start Date Stop Date Quantity Comments Source [facility] to 2022-07-31 2022-08-10 Not sure [place] [facility] SARS-CoV-2 (event) 00:00:00 10:22:00 Tobacco use and 2022-07-06 2022-07-06 Smokeless [place] [facility] exposure 00:00:00 00:00:00 tobacco non-user Tobacco Comment 2022-07-06 2022-07-06 Smoking History [place] [facility] ealt 00:00:00 00:00:00 Packs/day: N. Recorded: 021 Alcohol intake 2016-12-01 2016-12-01 0 /d University of 00:00:00 00:00:00 [facility] History of Social 2016-11-12 2016-11-12 Univers ity of function 00:00:00 00:00:00 [facility] Sex Ass[birth year] Universit y of 00:00:00 00:00:00 [facility] Smoking Status Start Date Stop Date Source Heavy Tobacco Smoker [facility] Never smoked tobacco [place] [facility] Medications Ordered Filled Start Stop Current Ordering [...] 0 Yes lisinopril U T 20 MG 9-20 20 mg Health tablet 11:02: tablet 16 ezetimibe 0 Yes ezetimibe UT (Zetia) 10 9-20 10 mg Health MG tablet 11:02: tablet 16 methocarbam 0 Yes 500mg Q.5D Take 500 U T ol 8-16 mg by Health (Robaxin) 09:52: mouth 2 500 MG 09 (two) tablet times a day. metoprolol Yes metoprolol U T succinate 8-16 succinate Healt h XL 09:52: ER 25 mg (Toprol-XL) 09 tablet,ext 25 MG 24 hr ended tablet release 24 hr lisinopril Yes lisinopril U T 20 MG 8-16 20 mg Health tablet 09:52: tablet 09 ezetimibe 0 Yes ezetimibe UT (Zetia) 10 8-16 10 mg Health MG tablet 09:52: tablet 09 gabapentin Yes [id number] 100mg QD Take 1 UT (Neurontin) 07-06 capsule Healt h 100 MG 00:00: (100 mg capsule 00 total) by mouth 1 (one) time each day. gabapentin 2021- No [id number] 100mg QD Take 1 UT (Neurontin) 07-06 capsule Heal th 100 MG 00:00: 04:59 (100 mg capsule 00 :00 total) by mouth 1 (one) time each day. celecoxib 2021- No [id number] 100mg Q.5D Take 1 UT (CeleBREX) 07-06 [id number] capsule Hea lth 100 MG 00:00: 04:59 (100 mg capsule 00 :00 total) by mouth in the morning and 1 capsule (100 mg total) in the evening. lisinopril Yes lisinopril U T 20 MG 8-26 20 mg Health tablet 21:18: tablet 47 ezetimibe 0 Yes ezetimibe UT (Zetia) 10 8-26 10 mg Health MG tablet 21:18: tablet 47 metoprolol 0 Yes metoprolol U T succinate 8-26 succinate Healt h XL 21:18: ER 25 mg (Toprol-XL) 46 tablet,ext 25 MG 24 hr ended tablet release 24 hr Diclofenac 2020- No [id number] 20mg Q.5D Apply 20 UT Sodium 8-26 09-26 mg [facility] ([facility]) 00:00: 04:59 topically 2 % 00 :00 2 (two) solution times a day. Diclofenac 2020- No [id number] 20mg Q.5D Apply 20 UT Sodium 8-26 09-26 mg [facility] ([facility]) 00:00: 04:59 topically 2 % 00 :00 2 (two) solution times a day. methocarbam Yes 500mg Q.5D Take 500 U T ol 4-24 mg by Health (Robaxin) 16:52: mouth 2 500 MG 38 (two) tablet times a day. methocarbam Yes 500mg Q.5D Take 500 U T ol 4-24 mg by Health (Robaxin) 11:52: mouth 2 500 MG 38 (two) tablet times a day. methocarbam Yes 500mg Q.5D Take 500 U T ol 4-24 mg by Health (Robaxin) 11:52: mouth 2 500 MG 38 (two) tablet times a day. predniSONE 0 Yes prednisone U T (Deltasone) 3-16 2.5 mg Health 2.5 MG 00:00: tablet tablet predniSONE 0 Yes prednisone U T (Deltasone) 3-16 2.5 mg Health 2.5 MG 00:00: tablet tablet predniSONE 0 Yes prednisone U T (Deltasone) 3-16 2.5 mg Health 2.5 MG 00:00: tablet tablet 00 ARGININE-50 2015-11 Yes Take by Uni vers 0 ORAL 2-23 mouth. ity of 10:40: [place] [address] Medical Branch fosinopril 2015-11 Yes 20mg Take 20 mg U nivers (MONOPRIL) 2-23 by mouth ity o f 20 mg 10:39: daily. [facility] 43 Medical Branch DOCOSAHEXAN 2015-11 Yes Take by Uni vers OIC 2-23 mouth. ity of ACID/EPA 10:39: [place] (FISH OIL 43 Medical ORAL) Branch methylPREDN 2015-11 Yes 84mg Take 21 Uni vers ISolone 2-23 tablets by ity of (MEDROL, 00:00: mouth [place] JASON,) 4 mg 00 SEE-INSTRU Med ical tablets CTIONS. Branch follow package directions diclofenac 2015-11 Yes 75mg Take 1 Unive rs 75 mg EC 2-23 tablet by ity of tablet 00:00: mouth 2 [place] 00 (two) Medical times Branch daily with meals. gabapentin Yes Univers (NEURONTIN) 6-05 ity of 100 mg 00:00: [place] capsule 00 Medical Branch predniSONE Yes Univers (DELTASONE) 5-18 ity of 5 mg tablet 00:00: [place] 00 Medical Branch pantoprazol Yes Univer s e 6-23 ity of (PROTONIX) 00:00: [place] 40 mg EC 00 Medical tablet Branch TESTIM 50 Yes Univers mg/5 gram 5-14 ity of (1 %) Gel 00:00: [place] 00 Medical Branch metaxalone Yes Univers (SKELAXIN) 4-10 ity of 800 mg 00:00: [place] tablet 00 Medical Branch ezetimibe ezetimibe No ezetimibe Laina 10 mg [...] for pain needed for pain Immunizations Ordered Filled Date Status Comments Source Immunization Name Immunization Name COVID-19 [facility] 2022-05-06 Completed [facility] Vaccination 00:00:00 (NEVES CAP-DO NOT DILUTE) COVID-19 Pfizer 12 2022-05-06 Completed [facility] Vaccination 00:00:00 (NEVES CAP-DO NOT DILUTE) SARS-COV-2 COVID-19 Unknown Completed Unive rsity of PFIZER VACCINE [facility] SARS-COV-2 COVID-19 Unknown Completed Unive rsity of PFIZER VACCINE [facility] Vital Signs Vital Name Observation Time Observation Value Comments Source Systolic blood 2023-08-17 13:04:00 139 mm[Hg] Univer sity of [facility] Diastolic blood 2023-08-17 13:04:00 65 mm[Hg] Unive rsity [facility] Heart rate 2023-08-17 13:04:00 85 /min Universi [facility] Body height 2023-08-17 13:04:00 175.3 cm [facility] Body weight 2023-08-17 13:04:00 68.663 kg [facility] BMI 2023-08-17 13:04:00 22.35 kg/m2 [facility] Systolic blood 2022-08-10 16:01:00 99 mm[Hg] [facility] pressure Diastolic blood 2022-08-10 16:01:00 63 mm[Hg] [facility] He alth pressure Heart rate 2022-08-10 16:01:00 70 /min [facility]alt [facility] Body height 2022-08-10 16:01:00 172.7 cm [facility] Body weight 2022-08-10 16:01:00 70.308 kg [facility] BMI 2022-08-10 16:01:00 23.57 kg/m2 [facility] Body Weight 2022-07-23 00:00:00 155 [lb_av] [facility] Height 2022-07-23 00:00:00 69 [in_i] [facility] BMI (Body Mass 2022-07-23 00:00:00 22.9 kg/m2 Laina Orthopedic Index) Sports Medicine Systolic blood 2022-07-06 14:49:00 121 mm[Hg] [facility] pressure Diastolic blood 2022-07-06 14:49:00 63 mm[Hg] [place] [facility] pressure Heart rate 2022-07-06 14:49:00 85 /min [place] [facility] Body height 2022-07-06 14:49:00 175.3 cm [place] [facility] Body weight 2022-07-06 14:49:00 68.04 kg [facility] BMI 2022-07-06 14:49:00 22.15 kg/m2 [facility] Procedures Procedure Date / Time Performing Clinician Source Performed XR, hand, 2 view 2022-07-23 00:00:00 [facility] [place] BONE DENSITY DXA DUAL 2021-04-21 14:31:05 Steve [facility] ENERGY [id number] [place] BONE DENSITY DXA DUAL 2021-04-21 14:31:05 Wilson [facility] ENERGY [id number] Prostatectomy Laina Orthopedi [facility] Sports Medicine Encounters Start End Encounter Admission Attending Care Care Encounter Source Date/Time Date/Time Type Type Clinicians Facility Department ID 2021-07-15 Outpatient [facility] [id number] [place] 15:20:07 Health 2021-03-28 Outpatient [facility] [id number] [place] 04:03:14 [facility] 2023-08-17 2023-08-17 Nurse Nurse, Andrea Zhang [facility] [id number] Univers 10:20:00 10:40:00 Visit Hattie Brice [facility] [id number] bill [facility] [id number] [place] as TIAN?BLEA [id number] [address] MEDICAL OFFICE BUILDING 2023-08-17 2023-08-17 Outpatient Tc BRICE [facility] [id number] [facility] [place] [facility] 10:20:00 10:20:00 [facility] 2022-08-10 2022-08-[address] [facility] [id number] [place] 11:00:00 11:21:21 Visit Jenny VAN [id number] He alth [address] 2 [id number] 2022-07-23 2022-07-23 Outpatient FOG_Burke_R AOSM AOSM [id number] Laina 00:00:00 00:00:00 [place] [id number] Ortho pe dic Sports Medicin e 2022-07-23 2022-07-23 Outpatient MIRIAM Reeder AOSM [id number] 00:00:00 00:00:00 Junior Lamar [id number] 2022-07-23 2022-07-23 Junior Lamar AOSM [place] - Ortho Laina 00:00:00 00:00:00 MD Varinder: Iqra Adams [address] [address] FOG_Ofc dic [email or web address] [address], [place] [address] , Ph. [phone] 2022-07-19 2022-07-19 Outpatient FOG_Burke_R AOSM AOSM [id number] Laina 00:00:00 00:00:00 Marques [id number] Ortho pe dic Sports Medicin e 2022-07-14 2022-07-14 Outpatient FOG_Burke_R AOSM AOSM [id number] Laina 00:00:00 00:00:00 Marques [id number] Ortho pe dic Sports Medicin e 2022-07-13 2022-07-13 Outpatient FOG_Burke_R AOSM AOSM [id number] Laina 00:00:00 00:00:00 Marques [id number] Ortho pe dic Sports Medicin e 2022-07-08 2022-07-08 Outpatient FOG_Burke_R AOSM AOSM [id number] Laina 00:00:00 00:00:00 Marques [id number] Ortho pe dic Sports Medicin e 2022-07-06 2022-07-[address] [facility] [id number] [place] 11:00:00 11:00:00 Visit [facility] [id number] [place] [address] [address] [id number] 2021-07-16 2021-07-16 Office Shirlene [facility] [id number] [place] 15:55:40 16:10:40 Visit MARY Gallardo [id number] H ealth [facility] [id number] [address] 7 [id number] 2021-03-25 2021-03-[address] [facility] OP Wilson, EXT MSRDP [id number] [place] 00:00:00 00:00:00 [facility] LOCATION [id number] H ealth [id number] 2021-03-25 2021-03-[address] [facility] OP Wilson, EXT MSRDP [id number] [place] 00:00:00 00:00:00 [facility] [id number] H ealth [id number] 2021-02-06 2021-02-06 Outpatient [facility] [id number] Univers 12:30:00 12:30:00 [facility] 2021-01-16 2021-01-16 Outpatient [facility] [id number] Univers 11:20:00 11:20:00 [facility] 2020-12-24 2020-12-24 Outpatient CUAUHTEMOC URRUTIA [id number] 10:00:00 14:13:00 JENNY Results This patient has no known results.
[2023-10-08] MEDS ORDERED: HYDROCODONE/APAP 5/325 MG TAB ONE (08:32)
--- NOTE | 2023-10-08 09:11 | RAD REPORT ---
EXAM DESCRIPTION: RAD - Shoulder Left 2 View - 10/08/2023 8:40 am CLINICAL HISTORY: Left shoulder pain status post fall FINDINGS: No fracture or dislocation is seen. Osteoporosis
--- NOTE | 2023-10-08 09:14 | ER ---
Nurse's Notes [facility] Name: Jean-Pierre Betancur Age: 83 yrs Sex: Male : 1940 Arrival Date: 10/08/2023 Time: 07:54 Bed 7 Private MD: Manisha Melendez C Diagnosis: Other sprain of left shoulder joint Presentation: 10/08 08:07 Chief complaint: Patient states: trip and fall last night, fell on left shoulder , pain iw 10/10 , decreased ROM. Coronavirus screen: At this time, the client does not indicate any symptoms associated with coronavirus-19. Ebola Screen: Patient negative for fever greater than or equal to 101.5 degrees Fahrenheit, and additional compatible Ebola Virus Disease symptoms Patient denies exposure to infectious person. Patient denies travel to an Ebola-affected area in the 21 days before illness onset. Initial Sepsis Screen: Does the patient meet any 2 criteria? No. Patient's initial sepsis screen is negative. Does the patient have a suspected source of infection? No. Patient's initial sepsis screen is negative. Risk Assessment: Do you want to hurt yourself or someone else? Patient reports no desire to harm self or others. Onset of symptoms was October 07, 2023. 08:07 Method Of Arrival: Ambulatory iw 08:07 Acuity: WILSON 4 iw Historical: - Allergies: 08:10 Sulfa (Sulfonamide Antibiotics); iw - Home Meds: 08:10 lisinopril 20 mg Oral tab 1 tab once daily [Active]; iw - PMHx: 08:10 Arthritis; Hypertension; PMR; iw - Immunization history:: Adult Immunizations up to date. - Social history:: Smoking status: Patient denies any tobacco usage or history of. Screenin:26 [facility] ED Fall Risk Assessment (Adult) Score/Fall Risk Level 0 - 2 = Low Risk hb Oriented to surroundings, Maintained a safe environment, Educated pt \T\ family on fall prevention, incl call for assistance when getting out of bed. Abuse screen: Denies threats or abuse. Denies injuries from another. Nutritional screening: No deficits noted. Tuberculosis screening: No symptoms or risk factors identified. Assessment: 08:26 General: Appears in no apparent distress. Behavior is calm, cooperative. Pain: Pain hb currently is 10 out of 10 on a pain scale. Neuro: Level of Consciousness is awake, alert, obeys commands, Oriented to person, place, time, situation. Cardiovascular: Patient's skin is warm and dry. Respiratory: Respiratory effort is even, unlabored, Respiratory pattern is regular, symmetrical. GI: No signs and/or symptoms were reported involving the gastrointestinal system. : No signs and/or symptoms were reported regarding the genitourinary system. EENT: No signs and/or symptoms were reported regarding the EENT system. Derm: Skin is pink, warm \T\ dry. Musculoskeletal: Reports left shoulder pain. Vital Signs: 08:07 BP 145 / 68; Pulse 79; Resp 16; Temp 98.6; Pulse Ox 98% ; Weight 65.77 kg; Height 5 ft. iw 8 in. ; Pain 10/10; 09:20 BP 105 / 53; Pulse 69; Resp 16; Pulse Ox 99% ; ko1 08:07 Body Mass Index 22.05 (65.77 kg, 172.72 cm) iw 08:07 Pain Scale: Adult iw ED Course: 07:58 Patient arrived in ED. rg4 07:58 Manisha Melendez MD is Private Physician. rg4 07:58 Missy Mancera FNP [facility]. jh7 07:58 Evan Betancourt MD is Attending Physician. jh7 08:10 Triage completed. iw 08:10 Arm band placed on. iw 08:26 Elizabeth Spicer, RN is Primary Nurse. hb 08:26 Patient has correct armband on for positive identification. Provided Education on: hb medication, tests, result times. 08:26 No provider procedures requiring assistance completed. Patient did not have IV access hb during this emergency room visit. 08:42 XRAY Shoulder LEFT 2 view In Process Unspecified. EDMS 09:13 Manisha Melendez MD is Referral Physician. jh7 09:20 Shoulder immobilizer applied on left shoulder. ko1 Administered Medications: 08:25 Drug: HYDROcodone-acetaminophen PO 5 mg-325 mg 1 tabs PO once Route: PO; hb Medication: 08:26 VIS not applicable for this client. hb Outcome: 09:14 Discharge ordered by . jh7 09:20 Discharged to home ambulatory, with family, ko1 09:20 Condition: stable 09:20 Discharge instructions given to patient, family, Instructed on discharge instructions, follow up and referral plans. medication usage, Demonstrated understanding of instructions, follow-up care, medications, 09:32 Patient left the ED. ko1 Signatures: Dispatcher [employer] EDPetrona Bennett, RN Elizabeth London RN RN Estella Johns 4 Missy Mancera, MEDICAID ANALYST MEDICAID ANALYST 7 Rubi Burton RN RN ko1
--- NOTE | 2023-10-08 09:14 | EDPHYS ---
Physician Documentation [facility] Name: Jean-Pierre Betancur Age: 83 yrs Sex: Male : 1940 Arrival Date: 10/08/2023 Time: 07:54 Bed 7 Private MD: Manisha Melendez C ED Physician Evan Betancourt HPI: 10/08 07:58 This 83 yrs old Male presents to ER via Unassigned with complaints of Fall Injury, jh7 Shoulder Injury. 07:58 Details of fall: The patient fell from an upright position, while walking. Onset: The jh7 symptoms/episode began/occurred acutely. Associated injuries: The patient sustained left shoulder, decreased range of motion, painful injury. Severity of symptoms:. Patient reports that he tripped and fell on tile last night. Denies LOC or head injury. The patient is not on blood thinners.. Historical: - Allergies: 08:10 Sulfa (Sulfonamide Antibiotics); iw - Home Meds: 08:10 lisinopril 20 mg Oral tab 1 tab once daily [Active]; iw - PMHx: 08:10 Arthritis; Hypertension; PMR; iw - Immunization history:: Adult Immunizations up to date. - Social history:: Smoking status: Patient denies any tobacco usage or history of. ROS: 07:58 Constitutional: Negative for fever, chills, and weight loss, Eyes: Negative for injury, jh7 pain, redness, and discharge, Neck: Negative for injury, pain, and swelling, Cardiovascular: Negative for chest pain, palpitations, and edema, Respiratory: Negative for shortness of breath, cough, wheezing, and pleuritic chest pain, Abdomen/GI: Negative for abdominal pain, nausea, vomiting, diarrhea, and constipation, Back: Negative for injury and pain, Skin: Negative for injury, rash, and discoloration, Neuro: Negative for headache, weakness, numbness, tingling, and seizure, 07:58 MS/extremity: Positive for injury or acute deformity, pain, of the left shoulder, 07:58 All other systems are negative, Exam: 07:58 Constitutional: This is a well developed, well nourished patient who is awake, alert, jh7 and in no acute distress. Head/Face: Normocephalic, atraumatic. Eyes: Pupils equal round and reactive to light, extra-ocular motions intact. Lids and lashes normal. Conjunctiva and sclera are non-icteric and not injected. Cornea within normal limits. Periorbital areas with no swelling, redness, or edema. Cardiovascular: Regular rate and rhythm with a normal S1 and S2. No gallops, murmurs, or rubs. Normal PMI, no JVD. No pulse deficits. Respiratory: Lungs have equal breath sounds bilaterally, clear to auscultation and percussion. No rales, rhonchi or wheezes noted. No increased work of breathing, no retractions or nasal flaring. Abdomen/GI: Soft, non-tender, with normal bowel sounds. No distension or tympany. No guarding or rebound. No evidence of tenderness throughout. Back: No spinal tenderness. No costovertebral tenderness. Full range of motion. Skin: Warm, dry with normal turgor. Normal color with no rashes, no lesions, and no evidence of cellulitis. Neuro: Awake and alert, GCS 15, oriented to person, place, time, and situation. Sensory grossly intact. Normal gait. 07:58 Musculoskeletal/extremity: Extremities: decreased ROM, pain, ROM: limited active range of motion, in the left shoulder, limited active range of motion due to pain, in the left shoulder, Circulation is intact in all extremities. Pulses: are normal with no appreciated deficits, Perfusion: the extremity is normally perfused throughout, pink, warm, with brisk capillary refill, Sensation intact. Vital Signs: 08:07 BP 145 / 68; Pulse 79; Resp 16; Temp 98.6; Pulse Ox 98% ; Weight 65.77 kg; Height 5 ft. iw 8 in. ; Pain 10/10; 09:20 BP 105 / 53; Pulse 69; Resp 16; Pulse Ox 99% ; ko1 08:07 Body Mass Index 22.05 (65.77 kg, 172.72 cm) iw 08:07 Pain Scale: Adult iw MDM: 07:58 Patient medically screened. [facility] 09:15 Differential diagnosis: contusion, fracture, sprain, strain. Data reviewed: vital [facility] signs, nurses notes, radiologic studies, plain films. I considered the following discharge prescriptions or medication management in the emergency department Medications were administered in the Emergency Department. See MAR. Independent interpretation of the following test(s) in the Emergency Department X-Ray: My interpretation is no acute fracture. Historians other than the Patient: Spouse/Significant Other: . Care significantly affected by the following chronic conditions: Hypertension. Counseling: I had a detailed discussion with the patient and/or guardian regarding the historical points, exam findings, and any diagnostic results supporting the discharge/admit diagnosis, to return to the emergency department if symptoms worsen or persist or if there are any questions or concerns that arise at home. Response to treatment: the patient's symptoms have mildly improved after treatment. Special discussion: advised to only wear the sling as needed for comfort, and to practice ROM exercises at home to avoid immobility.. 10/08 08:05 Order name: XRAY Shoulder LEFT 2 view; Complete Time: 09:13 [facility] 10/08 09:13 Order name: Sling; Complete Time: :22 [facility] Administered Medications: 08:25 Drug: HYDROcodone-acetaminophen PO 5 mg-325 mg 1 tabs PO once Route: PO; Disposition Summary: 10/08/23 09:14 Discharge Ordered Notes: Location: Home [facility] Problem: new [facility] Symptoms: are unchanged [facility] Condition: Stable [facility] Diagnosis - Other sprain of left shoulder joint [facility] Followup: [facility] - With: Manisha Melendez MD - When: 2 - 3 days - Reason: Recheck today's complaints Discharge Instructions: - Discharge Summary Sheet [facility] - Shoulder Sprain [facility] - How to Use a Sling [facility] - Shoulder Exercises-SportsMed [facility] Forms: - Medication Reconciliation Form [facility] - Thank You Letter [facility] - Prescription Opioid Use [facility] - Patient Portal Instructions [facility] - Leadership Thank You Letter [facility] Signatures: Dispatcher [employer] Petrona Don, NOELLE DRAKE Elizabeth Spicer RN RN Missy Mancera FNP PROSTHODONTIST/OWNER [facility]
[2023-10-08 09:37] VITALS: TEMP 98.6
[2023-10-08 09:38] VITALS: BP 105/53; O2SAT 99
== END 2023-10-08 09:32 | disposition home or self-care (01) ==
LOC: ER 07:54
DX: S43.492A Other sprain of left shoulder joint, initial encounter (principal); W01.0XXA Fall on same level from slipping, tripping and stumbling without subsequent striking against object, initial encounter; Y93.89 Activity, other specified; Y92.019 Unspecified place in single-family (private) house as the place of occurrence of the external cause; Z88.2 Allergy status to sulfonamides; I10 Essential (primary) hypertension
CPT/HCPCS: 99283

== ENCOUNTER 2023-10-31 18:41 | Emergency (ER) | payer OTHER ==
--- OUTSIDE RECORDS SUMMARY | 2023-10-31 18:45 | XMS REPORT | Continuity of Care Document ---
Author Name Unknown Address [address] [place] [address] [facility] thconnect Address [address] [place] [address] Care Team Providers Care Aquatics Assistant Department Head Name Role Phone Ángel Melendez Lucas Primary Care Physician [phone] ROSAMARIA LEGER Attending Clinician Unavailable Nurse, Andrea Db Attending Clinician Unavailable Hattie Brice MD Attending Clinician [phone] HATTIE BRICE Attending Clinician Unavailable Renan STEVENS, Jenny R Attending Clinician [phone] Lin Attending Clinician Unavaila Junior Arshad Attending Clinician [phone] Glynn Rodriguez MD Attending Clinician [phone] Chandan Wilson MD Attending Clinician [phone] Lin Admitting Clinician Unavaila ble Payers Payer Name Policy Type Policy Number Effective Date Expirati on Date Source MEDICARE PART A AND B [id number] 2003 00:00:00 [place]: [employer] [id number] 2003 00:00:00 [employer] - PLAN F (MEDICARE SUPPLEMENT) [id number] 2018 00:00:00 Problems Condition Name Condition Details Condition Category Status Onset Date Resolution Date Last Treatment Date Treating Clinician Comments Source Triggering of digit Triggering of Digit Problem Active 9- 00:00: 00 [facility] Arthritis of bilateral first carpometac arpal joints Arthritis of Bilateral First Carpometac arpal Joints Problem Active 9- 00:00: 00 [facility] Pain of left hand Pain of Left Hand Problem Active - 00:00: 00 [facility] Pain in right hand Pain in Right Hand Problem Active 9- 00:00: 00 [facility] CMC arthritis CMC arthritis Disease Active 07-16 00:00: 00 Last Assessmen t & Plan: Formattin g of this note might be [...] I can follow-up with him as needed. [facility] Wrist pain, left Wrist pain, left Disease Active 8- 00:00: 00 [facility] rn long term care (current) use of systemic steroids rn long term care (current) use of systemic steroids Disease Active 5-21 00:00: 00 [facility] Trigger finger of left hand Trigger Finger of Left Hand Problem Active 2019-11 1-05 00:00: 00 [facility] Degenerati on of lumbar interverte bral disc Degenerati on of Lumbar Interverte bral Disc Problem Active 4-29 00:00: 00 [facility] Low back pain Low Back Pain Problem Active 4-29 00:00: 00 [facility] Encounter for long-term (current) use of steroids Encounter for long-term (current) use of steroids Disease Active 3-16 00:00: 00 [facility] Inflammati on of rotator cuff tendon Inflammati on of Rotator Cuff Tendon Problem Active 8-23 00:00: 00 [facility] Impingemen t syndrome of shoulder region Impingemen t Syndrome of Shoulder Region Problem Active 07-13 00:00: 00 [facility] Winged scapula Winged Scapula Problem Active 07-13 00:00: 00 [facility] Pain of left shoulder joint Pain of Left Shoulder Joint Problem Active 07-13 00:00: 00 [facility] Lumbar radiculopa thy Lumbar Radiculopa thy Problem Active 03-13 00:00: 00 [facility] Trochanter ic bursitis of left hip Trochanter ic Bursitis of Left Hip Problem Active 03-13 00:00: 00 [facility] Idiopathic osteoarthr itis Idiopathic Osteoarthr itis Problem Active 2017-11 00:00: 00 [facility] Trigger finger of right hand Trigger Finger of Right Hand Problem Active 2017-11 00:00: 00 [facility] Degenerati ve joint disease of hand Degenerati ve Joint Disease of Hand Problem Active 03-31 00:00: 00 [facility] Enthesopat hy of hip region Enthesopat hy of Hip Region Problem Active 02-10 00:00: 00 [facility] Bilateral hand pain Bilateral hand pain Disease Active 2015-11 00:00: 00 [facility] Cervical spondylosi s Cervical Spondylosi s Problem Active 01-01 00:00: 00 [facility] Allergies, Adverse Reactions, Alerts Allergy Name Allergy Type Status Severity Reaction(s) Onset Date Inactive Date Treating Clinician Comments Source Sulfa Antibiot ics Propensi ty to adverse reaction s Active Unknown 03-14 00:00: 00 [facility] SULFA (SULFONA MIDE ANTIBIOT ICS) Allergy to substanc e Active 01-01 00:00: 00 [facility] Erythrom ycin Allergy to substanc e Active 01-01 00:00: 00 [facility] SULFA (SULFONA MIDE ANTIBIOT ICS) Drug Class Active Rash 05-21 00:00: 00 [facility] Sulfa (Sulfona mide Antibiot ics) Propensi ty to adverse reaction s Active Rash 05-21 00:00: 00 [facility] Social History Social Habit Start Date Stop Date Quantity Comments Source [facility] Exposure to SARS-CoV-2 (event) 2022-07-31 00:00:00 2022-08-10 10:22:00 Not sure [facility] Tobacco use and exposure 2022-07-06 00:00:00 2022-07-06 00:00:00 Smokeless tobacco non-user [facility] Tobacco Comment 2022-07-06 00:00:00 2022-07-06 00:00:00 Smoking History Packs/day: N. Recorded: 021 [facility] Alcohol intake 2016-12-01 00:00:00 2016-12-01 00:00:00 0 /d [facility] History of Social function 2016-11-12 00:00:00 2016-11-12 00:00:00 [facility] Sex Ass[birth year] At 1940 00:00:00 1940 00:00:00 [facility] Smoking Status Start Date Stop Date Source Heavy Tobacco Smoker [facility] Never smoked tobacco [facility] Medications Ordered Medication Name Filled Medication Name Start Date Stop Date Current Medication? Ordering Clinician Indication Dosage Frequency Signature (SIG) Comments Components Source methocarbam ol (Robaxin) 500 MG tablet 08-10 11:02: 16 Yes 500mg Q.5D Take 500 mg by mouth 2 (two) times a day. [facility] metoprolol succinate XL (Toprol-XL) 25 MG 24 hr tablet 08-10 11:02: 16 Yes metoprolol succinate ER 25 mg tablet,ext ended release 24 hr [facility] lisinopril 20 MG tablet 08-10 11:02: 16 Yes lisinopril 20 mg tablet [facility] ezetimibe (Zetia) 10 MG tablet 08-10 11:02: 16 Yes ezetimibe 10 mg tablet [facility] methocarbam ol (Robaxin) 500 MG tablet 07-06 09:52: 09 Yes 500mg Q.5D Take 500 mg by mouth 2 (two) times a day. [facility] metoprolol succinate XL (Toprol-XL) 25 MG 24 hr tablet 07-06 09:52: 09 Yes metoprolol succinate ER 25 mg tablet,ext ended release 24 hr [facility] lisinopril 20 MG tablet 07-06 09:52: 09 Yes lisinopril 20 mg tablet [facility] ezetimibe (Zetia) 10 MG tablet 07-06 09:52: 09 Yes ezetimibe 10 mg tablet [facility] gabapentin (Neurontin) 100 MG capsule 07-06 00:00: 00 Yes [id number] 100mg QD Take 1 capsule (100 mg total) by mouth 1 (one) time each day. [facility] gabapentin (Neurontin) 100 MG capsule 07-06 00:00: 00 08-06 04:59 :00 No [id number] 100mg QD Take 1 capsule (100 mg total) by mouth 1 (one) time each day. [facility] celecoxib (CeleBREX) 100 MG capsule 07-06 00:00: 00 08-06 04:59 :00 No [id number] 100mg Q.5D Take 1 capsule (100 mg total) by mouth in the morning and 1 capsule (100 mg total) in the evening. [facility] lisinopril 20 MG tablet 07-16 21:18: 47 Yes lisinopril 20 mg tablet [facility] ezetimibe (Zetia) 10 MG tablet 07-16 21:18: 47 Yes ezetimibe 10 mg tablet [facility] metoprolol succinate XL (Toprol-XL) 25 MG 24 hr tablet 07-16 21:18: 46 Yes metoprolol succinate ER 25 mg tablet,ext ended release 24 hr [facility] Diclofenac Sodium (Pennsaid) 2 % solution 07-16 00:00: 00 08-16 04:59 :00 No [id number] 20mg Q.5D Apply 20 mg topically 2 (two) times a day. [facility] Diclofenac Sodium (Pennsaid) 2 % solution 07-16 00:00: 00 08-16 04:59 :00 No [id number] 20mg Q.5D Apply 20 mg topically 2 (two) times a day. [facility] methocarbam ol (Robaxin) 500 MG tablet 03-14 16:52: 38 Yes 500mg Q.5D Take 500 mg by mouth 2 (two) times a day. [facility] methocarbam ol (Robaxin) 500 MG tablet 03-14 11:52: 38 Yes 500mg Q.5D Take 500 mg by mouth 2 (two) times a day. [facility] methocarbam ol (Robaxin) 500 MG tablet 03-14 11:52: 38 Yes 500mg Q.5D Take 500 mg by mouth 2 (two) times a day. [facility] predniSONE (Deltasone) 2.5 MG tablet 02-03 00:00: 00 Yes prednisone 2.5 mg tablet [facility] predniSONE (Deltasone) 2.5 MG tablet 02-03 00:00: 00 Yes prednisone 2.5 mg tablet [facility] predniSONE (Deltasone) 2.5 MG tablet 02-03 00:00: 00 Yes prednisone 2.5 mg tablet [facility] ARGININE-50 0 ORAL 2015-11 10:40: 38 Yes Take by mouth. [facility] fosinopril (MONOPRIL) 20 mg tablet 2015-11 10:39: 43 Yes 20mg Take 20 mg by mouth daily. [facility] DOCOSAHEXAN OIC ACID/EPA (FISH OIL ORAL) 2015-11 10:39: 43 Yes Take by mouth. [facility] methylPREDN ISolone (MEDROL, JASON,) 4 mg tablets 2015-11 00:00: 00 Yes 84mg Take 21 tablets by mouth SEE-INSTRU CTIONS. follow package directions [facility] diclofenac 75 mg EC tablet 2015-11 00:00: 00 Yes 75mg Take 1 tablet by mouth 2 (two) times daily with meals. [facility] gabapentin (NEURONTIN) 100 mg capsule 04-25 00:00: 00 Yes [facility] predniSONE (DELTASONE) 5 mg tablet 18 00:00: 00 Yes [facility] pantoprazol e (PROTONIX) 40 mg EC tablet 6 00:00: 00 Yes [facility] TESTIM 50 mg/5 gram (1 %) Gel 514 00:00: 00 Yes [facility] metaxalone (SKELAXIN) 800 mg tablet 4 00:00: 00 Yes [facility] ezetimibe 10 mg tablet ezetimibe 10 mg tablet No ezetimibe 10 mg tablet [facility] lisinopril 20 mg tablet lisinopril 20 mg tablet No lisinopril 20 mg tablet [facility] metoprolol succinate ER 25 mg tablet,exte nded release 24 hr metoprolol succinate ER 25 mg tablet,exte nded release 24 hr No metoprolol succinate ER 25 mg tablet,ext ended release 24 hr [facility] prednisone 10 mg tablet 1 by mouth three times a day prednisone 10 mg tablet 1 by mouth three times a day No prednisone 10 mg tablet 1 by mouth three times a day [facility] Voltaren Arthritis Pain 1 % topical gel Apply 2 gram to affected area three times a day as needed for pain Voltaren Arthritis Pain 1 % topical gel Apply 2 gram to affected area three times a day as needed for pain No Voltaren Arthritis Pain 1 % topical gel Apply 2 gram to affected area three times a day as needed for pain [facility] Immunizations Ordered Immunization Name Filled Immunization Name Date Status Comments Source COVID-19 Pfizer 12 & Over Vaccination (NEVES CAP-DO NOT DILUTE) 2022-05-06 00:00:00 Completed [facility] COVID-19 Pfizer 12 & Over Vaccination (NEVES CAP-DO NOT DILUTE) 2022-05-06 00:00:00 Completed [facility] SARS-COV-2 COVID-19 PFIZER VACCINE Unknown Completed [facility] SARS-COV-2 COVID-19 PFIZER VACCINE Unknown Completed [facility] Vital Signs Vital Name Observation Time Observation Value Comments S ource Systolic blood pressure 2023-08-17 13:04:00 139 mm[Hg] [facility] Diastolic blood pressure 2023-08-17 13:04:00 65 mm[Hg] [facility] Heart rate 2023-08-17 13:04:00 85 /min [facility] Body height 2023-08-17 13:04:00 175.3 cm [facility] Body weight 2023-08-17 13:04:00 68.663 kg [facility] BMI 2023-08-17 13:04:00 22.35 kg/m2 [facility] Systolic blood pressure 2022-08-10 16:01:00 99 mm[Hg] [facility] Diastolic blood pressure 2022-08-10 16:01:00 63 mm[Hg] [facility] Heart rate 2022-08-10 16:01:00 70 /min [facility] Body height 2022-08-10 16:01:00 [facility]7 [facility] Body weight 2022-08-10 16:01:00 [facility]308 [facility] BMI 2022-08-10 16:01:00 23.57 kg/m2 [facility] Height 2022-07-23 00:00:00 69 [in_i] [facility] BMI (Body Mass Index) 2022-07-23 00:00:00 22.9 kg/m2 [facility] Body Weight 2022-07-23 00:00:00 155 [lb_av] [facility] Systolic blood pressure 2022-07-06 14:49:00 121 mm[Hg] [facility] Diastolic blood pressure 2022-07-06 14:49:00 63 mm[Hg] [facility] Heart rate 2022-07-06 14:49:00 85 /min [facility] Body height 2022-07-06 14:49:00 175.3 [facility] Body weight 2022-07-06 14:49:00 68.04 [facility] BMI 2022-07-06 14:49:00 22.15 kg/m2 [facility] Procedures Procedure Date / Time Performed Performing Clinician Source XR, hand, 2 view 2022-07-23 00:00:00 Haritha [facility] [place] BONE DENSITY DXA DUAL ENERGY [id number] 2021-04-21 14:31:05 Steve [facility] MA BONE DENSITY DXA DUAL ENERGY [id number] 2021-04-21 14:31:05 Wilson [facility] Encounters Start Date/Time End Date/Time Encounter Type Admission Type Attending [facility] Care Facility Care Department Encounter ID Source 2021-07-15 15:20:07 Outpatient [facility] [id number] [facility] 2021-03-28 04:03:14 Outpatient ROSAMARIA LEGER [facility] [id number] [facility] 2023-08-17 10:20:00 2023-08-17 10:40:00 Nurse Visit Nurse, Andrea Brice [facility] [id number] [facility] 2023-08-17 10:20:00 2023-08-17 10:20:00 Outpatient HATTIE MOTT [facility] [id number] [facility] 2022-08-10 11:00:00 2022-08-10 11:21:21 Office Visit Jenny Urrutia [facility] 2 [id number] [facility] 2022-07-23 00:00:00 2022-07-23 00:00:00 Outpatient SHAYLA_Abril Mohan [facility] [id number] [facility] 2022-07-23 00:00:00 2022-07-23 00:00:00 [facility] [id number] 2022-07-23 00:00:00 2022-07-23 00:00:00 Junior Reeder MD: [id number] [place] [address] , Ph. [phone] [facility] [place] [facility] [place] [id number] [facility] 2022-07-19 00:00:00 2022-07-19 00:00:00 Outpatient FOG_Burke_R leslie_ [facility] [id number] [facility] 2022-07-14 00:00:00 2022-07-14 00:00:00 Outpatient FOG_Burke_R obert_MD [facility] [id number] [facility] 2022-07-13 00:00:00 2022-07-13 00:00:00 Outpatient FOG_Burke_R obert_MD [facility] [id number] [facility] 2022-07-08 00:00:00 2022-07-08 00:00:00 Outpatient FOG_Burke_R obert_MD [facility] [id number] [facility] 2022-07-06 11:00:00 2022-07-06 11:00:00 Office Visit Jenny Urrutia [facility] [id number] [facility] 2021-07-16 15:55:40 2021-07-16 16:10:40 Office Visit Glynn Rodriguez [facility] [id number] [id number] [facility] 2021-03-25 00:00:00 2021-03-25 00:00:00 EXT [facility] OP Chandan Wilson EXT [facility] LOCATION .840.114 [id number] [facility] 2021-03-25 00:00:00 2021-03-25 00:00:00 EXT [facility] OP Chandan Wilson EXT [facility] LOCATION [id number] [facility] 2021-02-06 12:30:00 2021-02-06 12:30:00 Outpatient [facility] [id number] [facility] 2021-01-16 11:20:00 2021-01-16 11:20:00 Outpatient [facility] [id number] [facility]
[2023-10-31 20:35] LABS: Absolute Lymphocytes (CBC) 1.8 K/uL (0.7-4.9); Hematocrit 42.7 % (39.6-49.0); Lymphocytes % 15.9 % (15.3-44.8); Platelets 188 thou/uL (152-406); RBC Red Blood Cell Count 4.49 M/uL (4.33-5.43)
--- NOTE | 2023-10-31 23:01 | RAD REPORT ---
EXAM DESCRIPTION: CT - Thorax W/ Con - 10/31/2023 10:19 pm CLINICAL HISTORY: Chest pain/dysphagia COMPARISON: None TECHNIQUE: Computed axial tomography of the chest was obtained. 100 cc Isovue 300 was administered i ntravenously. All CT scans are performed using dose optimization technique as appropriate and may include automated exposure control or mA/KV adjustment according to patient size. FINDINGS: 3 millimeter nodule right upper lobe No mediastinal or hilar lymphadenopathy is seen. A pleural effusion is not present. A pericardial effusion is not seen. No gross abnormality of the esophagus seen. IMPRESSION: 3 millimeter nodule right upper lobe probably benign
--- NOTE | 2023-10-31 23:02 | RAD REPORT ---
EXAM DESCRIPTION: CT - Soft Tissue Neck W/Contr - 10/31/2023 10:18 pm CLINICAL HISTORY: Neck pain with dysphagia COMPARISON: None. TECHNIQUE: Computed axial tomography of the neck was obtained. 50 cc Isovue 300 was administered in travenously. Coronal and sagittal reconstruction was performed. All CT scans are performed using dose optimization technique as appropriate and may include automated exposure control or mA/KV adjustment according to patient size. FINDINGS: The pharynx, tongue base, larynx and subglottic trachea appear unremarkable The parotid, submandibular and thyroid glands appear unremarkable. No lymphadenopathy is seen Prominent anterior osteophytes C5-6 No fluid within the sinuses/mastoids IMPRESSION: No acute abnormality is displayed
--- NOTE | 2023-10-31 23:21 | EDPHYS ---
Physician Documentation [facility] Name: Jean-Pierre Betancur Age: 83 yrs Sex: Male : 1940 Arrival Date: 10/31/2023 Time: 18:41 Bed 9 Private MD: Manisha Melendez C ED Physician Armando Briones HPI: 10/31 19:04 This 83 yrs old Male presents to ER via Ambulatory with complaints of Post morning caregiver Problem, Sent by Rocio. 19:04 The patient or guardian complains of pain. Onset: The symptoms/episode began/occurred rn today. The pain does not radiate. Modifying factors: The symptoms are alleviated by nothing. the symptoms are aggravated by nothing. Severity of symptoms: At their worst the symptoms were mild, in the emergency department the symptoms are unchanged. The patient has experienced similar episodes in the past. Patient reports saw Dr. Chan today, had upper endoscopy with dilation of esophagus. Patient states after the procedure had a foreign body sensation in the throat as he has had before, got a little worse when he got home, call Dr. Chan's office and was told to come to the emergency room for evaluation. Patient states has not tried to eat anything solid as was told to just drink water and soup. Patient is able to breathe fine. Denies any neck swelling. Patient states swallowing fine and water is going down just fine.. Historical: - Allergies: 19:02 Sulfa (Sulfonamide Antibiotics); cm10 - PMHx: 19:02 Arthritis; PMR; Hypertension; cm10 - Immunization history:: Adult Immunizations unknown. - Social history:: Smoking status: Patient denies any tobacco usage or history of. - Family history:: not pertinent. - Hospitalizations: : No recent hospitalization is reported. ROS: 19:04 Constitutional: Negative for fever, chills, and weight loss, ENT: Negative for injury, rn pain, and discharge, Neck: Positive for mild neck pain and foreign body sensation Cardiovascular: Negative for chest pain, palpitations, and edema, Respiratory: Negative for shortness of breath, cough, wheezing, and pleuritic chest pain, Abdomen/GI: Negative for abdominal pain, nausea, vomiting, diarrhea, and constipation, Exam: 19:04 Constitutional: This is a well developed, well nourished patient who is awake, alert, rn and in no acute distress. ENT: No stridor, moist mucous membranes, no swelling noted Neck: No discoloration of neck. No asymmetrical swelling. No crepitus. Cardiovascular: Regular rate and rhythm. No pulse deficits. Respiratory: No increased work of breathing, no retractions or nasal flaring. Vital Signs: 18:59 BP 155 / 80; Pulse 86; Resp 16; Temp 97.6; Pulse Ox 100% on R/A; Weight 65.77 kg; cm10 Height 5 ft. 9 in. ; Pain 0/10; 23:19 BP 144 / 88; Pulse 80; Resp 17; Pulse Ox 99% on R/A; me1 18:59 Body Mass Index 21.41 (65.77 kg, 175.26 cm) cm10 18:59 Pain Scale: Adult cm10 MDM: 18:46 Patient medically screened. rn 23:18 Differential diagnosis: Cervical Raiculopathy cervical strain, torticollis. Data sp4 reviewed: vital signs, nurses notes, lab test result(s), radiologic studies, CT scan. Consideration of Admission/Observation Escalation of care including admission/observation considered. ED course: CT soft tissue neck chest reveals no emergent injury to esophagus. Patient stable for discharge home. Right lung 3 mm nodule will require follow-up. Patient was provided his CT report and asked to see his primary care physician for follow-up on the right lung nodule. . 23:22 ED course: CT - EXAM DESCRIPTION: CT - Thorax W/ Con - 10/31/2023 10:19 pm CLINICAL sp4 HISTORY: Chest pain/dysphagia COMPARISON: None TECHNIQUE: Computed axial tomography of the chest was obtained. 100 cc Isovue 300 was administered [address] All CT scans are performed using dose optimization technique as appropriate and may include automated exposure control or mA/KV adjustment according to patient size. FINDINGS: 3 millimeter nodule right upper lobe No mediastinal or hilar lymphadenopathy is seen. A pleural effusion is not present. A pericardial effusion is not seen. No gross abnormality of the esophagus seen. IMPRESSION: 3 millimeter nodule right upper lobe probably benign. 10/31 19:03 Order name: CBC with Diff; Complete Time: 22:43 rn 10/31 19:03 Order name: Basic Metabolic Panel; Complete Time: 22:43 rn 10/31 19:03 Order name: CT Soft Tissue Neck W/contr; Complete Time: 23:10 rn 10/31 20:38 Order name: CT Chest W/ Con; Complete Time: 23:10 sp4 10/31 19:03 Order name: IV Start; Complete Time: 20:20 rn Administered Medications: No medications were administered Disposition Summary: 10/31/23 23:20 Discharge Ordered Notes: Location: Home sp4 Problem: new sp4 Symptoms: have improved sp4 Condition: Stable sp4 Diagnosis - Dysphagia after endoscopy sp4 - Solitary pulmonary nodule sp4 Followup: sp4 - With: Manisha Melendez MD - When: 7 - 10 days - Reason: Recheck today's complaints Discharge Instructions: - Discharge Summary Sheet sp4 - Pulmonary Nodule, [id number] sp4 Forms: - Patient Portal Instructions sp4 Signatures: Dispatcher [employer] Jamar Fox MD MD rn Potepalov, Sergey, MD MD sp4 Angy Keller, RN RN cm10
--- NOTE | 2023-10-31 23:21 | ER ---
Nurse's Notes [facility] Name: Jean-Pierre Betancur Age: 83 yrs Sex: Male : 1940 Arrival Date: 10/31/2023 Time: 18:41 Bed 9 Private MD: Manisha Mleendez C Diagnosis: Dysphagia after endoscopy;Solitary pulmonary nodule Presentation: 10/31 18:59 Chief complaint: Patient states: He feels like he has something stuck in his throat S/P cm10 endoscopy this morning. Pt states that he had this sensation at the time that he was discharged this morning. Coronavirus screen: Vaccine status: Patient reports receiving the 2nd dose of the covid vaccine. Client denies travel out of the [place] in the last 14 days. Ebola Screen: Patient denies travel to an Ebola-affected area in the 21 days before illness onset. No symptoms or risks identified at this time. Initial Sepsis Screen: Does the patient meet any 2 criteria? No. Patient's initial sepsis screen is negative. Does the patient have a suspected source of infection? No. Patient's initial sepsis screen is negative. Risk Assessment: Do you want to hurt yourself or someone else? Patient reports no desire to harm self or others. Onset of symptoms was October 31, 2023. 18:59 Method Of Arrival: Ambulatory cm10 18:59 Acuity: WILSON 3 cm10 Triage Assessment: 19:02 General: Appears in no apparent distress. comfortable, Behavior is calm, cooperative. cm10 Pain: Denies pain. Historical: - Allergies: 19:02 Sulfa (Sulfonamide Antibiotics); cm10 - PMHx: 19:02 Arthritis; PMR; Hypertension; cm10 - Immunization history:: Adult Immunizations unknown. - Social history:: Smoking status: Patient denies any tobacco usage or history of. - Family history:: not pertinent. - Hospitalizations: : No recent hospitalization is reported. Screenin:27 [facility] ED Fall Risk Assessment (Adult) History of falling in the last 3 months, me1 including since admission No falls in past 3 months (0 pts) Confusion or Disorientation No (0 pts) Intoxicated or Sedated No (0 pts) Impaired Gait No (0 pts) Mobility Assist Device Used No (0 pt) Altered Elimination No (0 pt) Score/Fall Risk Level 0 - 2 = Low Risk Maintained a safe environment, Provided non-skid footwear, Hourly rounding (assess needs \T\ fall precautionary measures) done. Abuse screen: Denies threats or abuse. Nutritional screening: No deficits noted. Tuberculosis screening: No symptoms or risk factors identified. Assessment: 22:27 General: Appears uncomfortable, well groomed, well developed, well nourished, Behavior me1 is calm, cooperative, appropriate for age, Reports He feels like he has something stuck in his throat S/P endoscopy this morning. Pt states that he had this sensation at the time that he was discharged this morning. Neuro: Level of Consciousness is awake, alert, obeys commands, Oriented to person, place, time, situation, Appropriate for age. Cardiovascular: Capillary refill < 3 seconds Patient's skin is warm and dry. Respiratory: Airway is patent Respiratory effort is even, unlabored, Respiratory pattern is regular, symmetrical. EENT: Reports difficulty swallowing since after his endoscopy this am. Reports that he feels like he has something stuck in his throat. Vital Signs: 18:59 BP 155 / 80; Pulse 86; Resp 16; Temp 97.6; Pulse Ox 100% on R/A; Weight 65.77 kg; cm10 Height 5 ft. 9 in. ; Pain 0/10; 23:19 BP 144 / 88; Pulse 80; Resp 17; Pulse Ox 99% on R/A; me1 18:59 Body Mass Index 21.41 (65.77 kg, 175.26 cm) cm10 18:59 Pain Scale: Adult cm10 ED Course: 18:42 Patient arrived in ED. rg4 18:43 Manisha Melendez MD is Private Physician. rg4 18:46 Jamar Grimaldo MD is Attending Physician. rn 19:02 Triage completed. cm10 19:02 Arm band placed on Patient placed in an exam room, on a stretcher. cm10 20:06 Leroy Torres, RN is Primary Nurse. jb4 20:20 Inserted saline lock: 20 gauge in left antecubital area, using aseptic technique. me1 20:20 Basic Metabolic Panel Sent. me1 20:20 CBC with Diff Sent. me1 20:37 Attending Physician role handed off by Jamar Grimaldo MD sp4 20:37 Armando Briones MD is Attending Physician. sp4 22:01 Lizabeth Menard, RN is Primary Nurse. me1 22:17 CT Soft Tissue Neck W/contr In Process Unspecified. EDMS 22:17 CT Chest W/ Con In Process Unspecified. EDMS 22:27 Patient has correct armband on for positive identification. Bed in low position. Call me1 light in reach. Side rails up X 1. Provided Education on: POC. Verbalized understanding. . 22:27 No provider procedures requiring assistance completed. me1 23:19 IV discontinued, intact, bleeding controlled, No redness/swelling at site. Pressure me1 dressing applied. 23:20 Manisha Melendez MD is Referral Physician. sp4 Administered Medications: No medications were administered Medication: 22:27 VIS not applicable for this client. me1 Outcome: 23:19 Discharged to home ambulatory, with significant other, me1 23:19 Condition: stable 23:19 Discharge instructions given to patient, significant other, Instructed on discharge instructions, follow up and referral plans. Demonstrated understanding of instructions, follow-up care, 23:20 Discharge ordered by MD. sp4 23:30 Patient left the ED. me1 Signatures: Dispatcher [employer] EDMT Jamar Grimaldo MD MD rn Garcia, Rubi rg4 Leroy Torres RN RN [email or web address] Armando Briones MD MD sp4 Angy Keller RN RN cm10 Lizabeth Menard, RN RN me1 Corrections: (The following items were deleted from the chart) 22:27 18:59 Chief complaint: Patient states: He feels like he has something stuck in his me1 throat S/P endoscopy this morning. Pt states that he had this sensation at the time that he was discharged this morning. cm10
[2023-10-31 23:44] VITALS: TEMP 97.6
[2023-10-31 23:49] VITALS: BP 144/88; O2SAT 99
== END 2023-10-31 23:30 | disposition home or self-care (01) ==
LOC: ER 18:41
DX: R13.10 Dysphagia, unspecified (principal); R91.1 Solitary pulmonary nodule; Z98.890 Other specified postprocedural states; I10 Essential (primary) hypertension; Z88.2 Allergy status to sulfonamides
CPT/HCPCS: 85025; 80048; 36415; 71260; 70491; 99283; Q9967

== ENCOUNTER 2024-01-03 09:17 | Day surgery (SDC) | payer OTHER ==
[2023-12-29 10:39] LABS: Absolute Lymphocytes (CBC) 1.5 K/uL (0.7-4.9); Hematocrit 39.5 % (39.6-49.0); Lymphocytes % 19.5 % (15.3-44.8); MCV 94.5 fL (80-100); MPV 7.5 fL (7.6-11.3); Platelets 205 thou/uL (152-406); RBC Red Blood Cell Count 4.18 M/uL (4.33-5.43)
[2023-12-29 10:52] LABS: Protime INR 1.12
--- NOTE | 2023-12-29 10:55 | RAD REPORT ---
EXAM DESCRIPTION: RAD - Chest Pa And Lat (2 Views) - 12/29/2023 10:40 am CLINICAL HISTORY: Pre op pending heart catheterization, hypertension COMPARISON: Chest Single View dated 01/02/2017; Chest Pa And Lat (2 Views) dated 12/24/2016; CHEST PA A ND LAT 2 VIEW dated 01/15/2014; CHEST PA AND LAT 2 VIEW dated 07/07/2011 FINDINGS: Lines: None. Lungs: No evidence of edema or pneumonia. Pleural: No significant pleural effusions or pneumothorax. Cardiac: The heart size is within normal limits. Mediastinum: Within normal limits. Bones: No acute fractures. Other: None IMPRESSION: No acute cardiopulmonary disease.
--- NOTE | 2023-12-29 13:21 | EKG ---
Test Date: 2023-12-29 Test Time: 11:20:49 Assembling Inspector: LUISANA MEASUREMENT RESULTS: Intervals: Rate: 72 [place]: 206 QRSD: 94 QT: 344 QTc: 376 [place]: P: 70 [place]: 206 QRS: 37 T: 41 INTERPRETIVE STATEMENTS: Normal sinus rhythm Normal ECG Compared to ECG 02/20/2020 10:03:57 Atrial premature complex(es) no longer present Electronically Signed On 12-29-23 13:21:03 NETWORK CONTROL SUPERVISOR by Jorden Salas
[2024-01-03] MEDS ORDERED: NA CHLORIDE 0.9% 500 ML ONE (09:49)
[2024-01-03 10:07] VITALS: O2SAT 100
[2024-01-03] MEDS ORDERED: HEPA 1000U/500MLS 2,000 UNIT/1,000 ML BAG IV ONE (12:02)
[2024-01-03] MEDS ORDERED: LIDOCAINE 1% 20 ML MDV ONE (12:02)
[2024-01-03] MEDS ORDERED: VERAPAMIL HCL 10 MG/4 ML VIAL IV ONE (12:02)
[2024-01-03] MEDS ORDERED: FENTANYL CITR 100 MCG/2 ML ONE (12:02)
[2024-01-03] MEDS ORDERED: ATROPINE SULF 1 MG/10 ML SYR IV ONE (12:03)
[2024-01-03] MEDS ORDERED: HEPARIN 10,000 UNIT/10 ML VIAL IV ONE ×2 (12:03→13:51)
[2024-01-03] MEDS ORDERED: HEPARIN 5000 UNIT/ML 1 ML VIAL ONE (12:03)
[2024-01-03] MEDS ORDERED: MIDAZOLAM HCL 2 MG/2 ML INJ ONE (12:03)
[2024-01-03] MEDS ORDERED: TICAGRELOR 90 MG TABLET PO ONE (12:03)
[2024-01-03] MEDS ORDERED: CLOPIDOGREL 75 MG TABLET ONE ×2 (12:04→14:03)
[2024-01-03] MEDS ORDERED: ASPIRIN 325 MG TAB ONE (12:04)
[2024-01-03] MEDS ORDERED: HEPA 1000U/500MLS 1,000 UNIT/500 ML BAG IV ONE (13:47)
--- NOTE | 2024-01-03 15:18 | OP ---
Date of Procedure: 01/03/2024 Surgeon: MALLORY DOUGLAS Procedure Performed: 1.Selective coronary angiogram. 2.Left heart catheterization. 3.Right heart catheterization. 4.PCI of severe mid LAD stenosis, used 2.75 x 38 mm Synergy drug-eluting stent. Indication: 1.Chest pain and significant shortness of breath. 2.Aortic valve stenosis. Access: 1.Right radial artery 6-Trinidadian, closed with TR band. 2.Right IJ 7-Trinidadian, closed with manual pressure. Complications: None. Bleeding: Less than 20 mL. Sedation: Total sedation time was 75 minutes. I used fentanyl and Versed. Description Of Procedure: After risks, benefits, alternatives were explained, the patient agreed to proceed and signed informed consent. The patient was brought into cardiac catheterization laboratory , prepped and draped in usual sterile fashion. Then, I accessed right radial artery using pediatric micropuncture kit, placed 6-Trinidadian slender sheath and then accessed right IJ using ultrasound guidanc e and placed a 7-Trinidadian [place] sheath and then took a 7-Trinidadian balloon-tipped Foster catheter through the right IJ into the right atrium, right ventricle, pulmonary artery and wedge, obtained waveform a nd pressure and then obtained thermodilution cardiac output and then removed the Foster. Subsequently, I took 5-Trinidadian [place] 4 catheter over J-wire through the radial access, engaged left main and right coronary artery, took standard views and then valve was crossed using the wire and the Tig er catheter subsequently exchanged for Bg catheter. I did simultaneous pressure measurements t hrough the aortic valve and pullback did not record any internal gradient. Then gave systemic hepari n to assure ACT level above 250 throughout the procedure, took EBU 3.5 guide, engaged the left main a nd took run-through wire into the LAD, placed it distally and using 2.5 balloon, lesion was pre-dilat ed and then I placed a 2.75 x 38 mm Synergy drug-eluting stent in the mid LAD crossing a very long ar ea of stenosis. Excellent expansion, 0% residual stenosis and no complications. Wire was removed. Final angiogram was satisfactory and removed the guide and sheath and placed TR band. Good hemostasi s. IJ sheath was removed and manual pressure was applied with good hemostasis. Findings: 1.Left main: Short and normal. Almost separate ostium of the left LAD and left circumflex. 2.LAD: Proximal is normal. Mid segment has long 40% stenosis. Mid to distal very long segment ran ging between 70% and 80% stenosis, status post successful PCI as above and diagonal 1 branch is small , has proximal 50% stenosis and diagonal 2 is a larger branch and has proximal 80% stenosis. 3.Left circumflex proximal 60% stenosis and it is a large dominant artery, distally the inferior wal l has about focal 70% to 80% stenosis. 4.RCA small and dominant with diffuse 40% stenosis. 5.Elevated LVEDP at 70 mmHg. Right Heart Cath: RA pressure was 5. RV pressure 30/3, mean of 7. PA pressure 29/8, mean of 17. P ulmonary wedge pressure of 11. LVEDP was 17 mmHg. Cardiac output was 4.4 L/minute. Mean gradient a cross aortic valve was 11 mmHg. Valve area was 2 cm2. Conclusion: 1.Severe LAD and left circumflex stenosis, status post successful PCI of the LAD. 2.No significant aortic valve stenosis is found. 3.Elevated filling pressures. Plan: 1.Aspirin, Plavix, and statin. 2.Staged PCI of the left circumflex as it is large distal left circumflex and also diagonal 2 branch at the same time in about 6-8 weeks as we used a large amount o f contrast today. SR/MODL Voice ID: [id number] Report ID: [id number]
[2024-01-03 17:49] VITALS: BP 148/74
== END 2024-01-03 17:50 | disposition home or self-care (01) ==
LOC: CCL 09:17
PROVIDERS: ATTEND Internal Medicine
DX: I25.10 Atherosclerotic heart disease of native coronary artery without angina pectoris (principal); I35.0 Nonrheumatic aortic (valve) stenosis; I65.23 Occlusion and stenosis of bilateral carotid arteries; I10 Essential (primary) hypertension; E78.5 Hyperlipidemia, unspecified; Z87.891 Personal history of nicotine dependence; Z79.899 Other long term (current) drug therapy; Z88.2 Allergy status to sulfonamides
CPT/HCPCS: 93005; 85025; 80048; 36415; 83721; 85610; 85347 ×2; 85730; 71046; 93460; 76937; C1893; Q9966; C1725; C9600; J1644; J2001; J2250; J3010; J7040; 93458; 99152; 99153; J0461

== ENCOUNTER 2024-03-01 06:00 | Day surgery (SDC) | payer OTHER ==
[2024-02-28 10:53] LABS: Absolute Eosinophils 0.4 K/uL (0-0.5); Absolute Lymphocytes (CBC) 1.3 K/uL (0.7-4.9); Absolute Neutrophil 7.1 K/uL (1.8-8.0); Basophils % 0.5 % (0-1.3); Eosinophils % 3.6 % (0-4.4); Hematocrit 40.5 % (39.6-49.0); Hemoglobin 13.8 g/dL (13.6-17.9); Lymphocytes % 12.9 % (15.3-44.8); MCH 32.1 pg (27.0-35.0); MCHC 34.1 g/dL (32.0-36.0); MCV 94.2 fL (80-100); MPV 7.8 fL (7.6-11.3); Monocytes % 10.6 % (3.3-12.3); Neutrophils % 72.4 % (41.7-73.7); Platelets 208 thou/uL (152-406); Red Cell Distribution Width 13.1 % (12.1-15.2)
[2024-02-28 11:04] LABS: PT Prothrombin Time 11.8 SECONDS (9.5-12.5); PTT, Activated Partial Thromb 32.5 SECONDS (24.3-36.9); Protime INR 1.07
[2024-02-28 11:11] LABS: Anion Gap 6.5 mEq/L (5.0-15.0); Potassium 4.5 mEq/L (3.5-5.1)
--- NOTE | 2024-02-28 16:14 | EKG ---
Test Date: 2024-02-28 Test Time: 10:28:33 Pavilion Cutter: LUISANA MEASUREMENT RESULTS: Intervals: Rate: 69 NM: 208 QRSD: 92 QT: 360 QTc: 385 [place]: P: 72 NM: 208 QRS: 32 T: 61 INTERPRETIVE STATEMENTS: Normal sinus rhythm Normal ECG Compared to ECG 12/29/2023 11:20:49 No significant changes Electronically Signed On 02-28-24 16:13:48 CDT by Jorden Salas
[2024-03-01] MEDS ORDERED: NA CHLORIDE 0.9% 500 ML ONE (06:39)
[2024-03-01] MEDS ORDERED: HEPA 1000U/500MLS 2,000 UNIT/1,000 ML BAG IV ONE (07:02)
[2024-03-01] MEDS ORDERED: ATROPINE SULF 1 MG/10 ML SYR IV ONE (07:02)
[2024-03-01] MEDS ORDERED: VERAPAMIL HCL 10 MG/4 ML VIAL IV ONE (07:02)
[2024-03-01] MEDS ORDERED: LIDOCAINE 1% 20 ML MDV ONE (07:02)
[2024-03-01] MEDS ORDERED: HEPARIN 5000 UNIT/ML 1 ML VIAL ONE (07:03)
[2024-03-01] MEDS ORDERED: HEPARIN 10,000 UNIT/10 ML VIAL IV ONE (07:03)
[2024-03-01] MEDS ORDERED: NITROGLYCERIN/D5W 50 MG/250 ML BTL IV ONE (07:04)
[2024-03-01 07:11] VITALS: TEMP 97.5
[2024-03-01] MEDS ORDERED: MIDAZOLAM HCL 2 MG/2 ML INJ ONE (07:21)
[2024-03-01] MEDS ORDERED: FENTANYL CITR 100 MCG/2 ML ONE (07:21)
[2024-03-01] MEDS ORDERED: CLOPIDOGREL 75 MG TABLET ONE ×2 (07:30→08:55)
[2024-03-01] MEDS ORDERED: ASPIRIN 325 MG TAB ONE (07:30)
[2024-03-01 11:24] VITALS: O2SAT 100
[2024-03-01 14:01] VITALS: BP 125/64
--- NOTE | 2024-03-02 03:33 | OP ---
Date of Procedure: 03/01/2024 Surgeon: MALLORY DOUGLAS Procedures Performed: 1.Selective coronary angiogram. 2.Left heart catheterization. 3.PCI of severe mid LAD stenosis, used 3.5 x 60 mm Synergy drug-eluting stent. 4.PCI of severe diagonal 2 branch stenosis, used 2.25 x 16 mm Synergy drug-eluting stent. Indication: Unstable angina. Access: Right radial artery 6-American, closed with TR band. Complications: None. Bleeding: Less than 50 mL. Anesthesia: Total sedation time was 1 hour. Description Of Procedure: After risks, benefits, and alternatives were explained, the patient agreed to procedure and signed informed consent. The patient was brought in the cardiac catheterization la boratory, prepped and draped in usual sterile fashion. Then, I accessed right radial artery using pe diatric micropuncture kit, placed a 6-American slender sheath and took 5-American tiger 4 catheter into t he aortic root, engaged the left main and took standard views, and then exchanged for 6-American EBU3.5 guide, engaged left main, gave systemic heparin to assure ACT level above 250, and took a short run- through wire into the LAD, placed distally another short run-through wire into the diagonal 2 branch and placed it distally and then using a 3.0 balloon, I pre-dilated the LAD disease lesion and lesion expanded very well and then using a 2.5 balloon, I pre-dilated the diagonal lesion and lesion expande d very well and then I placed a 3.5 x 60 mm Synergy drug-eluting stent in the mid LAD stenosis to hig h-pressure to give a size of 3.8 mm overlapping with the other stent. Excellent results and then the diagonal branch stenosis became worse. I took an LAD wire and went through the diagonal 2 branch an d then used a 2.0 x 12 mm balloon and pre-dilated the lesion and then I took 2.25 x 60 mm Synergy lisandra g-eluting stent and did de-stenting and excellent results at the end, removed the wires and final ang iogram was satisfactory. During this procedure, heparin was given to assure ACT level above 250 and the patient is already on aspirin and Plavix, and then removed the guide and the sheath, placed TR ba nd with good hemostasis. Findings: 1.Left main, large and normal. 2.LAD, proximal is normal, mid segment 90% stenosis, status post successful PCI as above, and diagon al 1 branch has 50% proximally. Diagonal 2 branch, it is moderate-sized vessel, had proximal 90% josesito nosis, status post successful PCI as above and then mid LAD stent is patent. Distal LAD is normal. 3.Left circumflex has proximal 60% and distal 60% to 70% and it is dominant circulation. 4.RCA noted to be normal, not injected. 5.LVEDP is borderline elevated at 50 mmHg. Conclusion: 1.Severe mid LAD stenosis and diagonal 2 stenosis, status post successful PCI of both. 2.Moderate coronary artery disease elsewhere. Plan: Aspirin, Plavix, and statin, and we will plan for doing an exercise nuclear stress test in 3 m [facility] to evaluate the need to do PCI of the left circumflex. SR/MODL Voice ID: [id number] Report ID: [id number]
== END 2024-03-01 13:20 | disposition home or self-care (01) ==
LOC: CCL 06:00
PROVIDERS: ATTEND Internal Medicine
DX: I25.110 Atherosclerotic heart disease of native coronary artery with unstable angina pectoris (principal); I35.0 Nonrheumatic aortic (valve) stenosis; I65.29 Occlusion and stenosis of unspecified carotid artery; I10 Essential (primary) hypertension; E78.5 Hyperlipidemia, unspecified; Z95.5 Presence of coronary angioplasty implant and graft; Z87.891 Personal history of nicotine dependence; Z79.82 Long term (current) use of aspirin; Z79.02 Long term (current) use of antithrombotics/antiplatelets; Z79.899 Other long term (current) drug therapy; Z88.2 Allergy status to sulfonamides
CPT/HCPCS: 93005; 85025; 80048; 36415; 85610; 85347 ×2; 85730; 93454; 76937; C1893; Q9967; C1725; C9601; C9600; J1644; J2001; J3010; J7040; 99152; 99153; J0461; J2250